=== PATIENT | female | born 1940 | race Caucasian/White ===

== ENCOUNTER → 2020-08-07 11:59 | Outpatient (CLI) | payer MEDICARE, SELFPAY ==
--- NOTE | ~2020-08-07 | XR_ITS ---
EXAMINATION: XR chest 2V DATE: 08/07/2020 12:19 INDICATION: Shortness of breath. TECHNIQUE: Frontal and lateral views of the chest were obtained. COMPARISON: Chest 2 views 11/21/2011, CT abdomen and pelvis 10/06/2015 FINDINGS: There are small right and moderate-sized left pleural effusions. There are airspace opaciti es at left lung base. No pneumothorax. The heart size is obscured. There is a large hiatal hernia. IMPRESSION: 1. Small right and moderate-sized left pleural effusions. 2. Airspace opacities at left lung base, consistent with atelectasis versus pneumonia. 3. Large hiatal hernia. Reviewed, dictated and finalized at location A. OR STAFF ACCOUNTANT IMPRESSION: 1. Small right and moderate-sized left pleural effusions. 2. Airspace opacities at left lung base, consistent with atelectasis versus pne umonia. 3. Large hiatal hernia.
== END ==
PROVIDERS: PCP Family Medicine Adolescent Medicine; Visit Provider Physician Assistant
DX: R06.02 Shortness of breath (principal); K44.9 Diaphragmatic hernia without obstruction or gangrene; R92.8 Other abnormal and inconclusive findings on diagnostic imaging of breast; J90 Pleural effusion, not elsewhere classified
CPT/HCPCS: 71046

== ENCOUNTER 2020-08-16 13:49 | Outpatient (CLI) | payer MEDICARE, SELFPAY ==
--- NOTE | ~2020-08-16 | CT_ITS ---
EXAMINATION: CTA chest PE protocol EXAM DATE: 08/16/2020 15:09 INDICATION: Shortness of breath. TECHNIQUE: Spiral CTA of the chest (pulmonary arteries) was performed with 100 cc Omnipaque 350 intr avenous contrast injection. Images were acquired during the pulmonary arterial phase. Coronal maxi mum intensity projection 3D-reconstructions were created by the technologist on dedicated workstation . Axial, coronal and sagittal reformatted images were reviewed. The dose-length product (DLP) for t his examination was 628.98 mGy-cm. The exposure was tailored according to patient size (auto mA exp osure control), and iterative reconstruction (ASIR) was used as additional dose reduction technique. There is no prior study for comparison. FINDINGS: There are no pulmonary emboli in the 1st through 3rd order (central and interlobar) pulmon bhanu arteries. Some loss of attenuation in the basilar segmental pulmonary arteries without evidence of respiratory motion in these areas. No Intraluminal filling defects suspected. No thoracic aortic dissection. There is moderate left and small to moderate right pleural effusion with adjacent segmental atelectas is. There is cardiomegaly and pulmonary vascular congestion. Some vague bilateral groundglass opaciti es suspicious for mild pulmonary edema. Consider CHF exacerbation. There is moderate sliding gastroes ophageal hiatal hernia. Tracheobronchial tree is patent. There is no mediastinal, hilar or axilla ry lymphadenopathy. There is no pneumothorax. No evidence of coronary arterial calcification. T here is left adrenal lesion most likely adenoma measuring 1.4 cm. Small sclerotic focus left 3rd rib anteriorly probably bone island. Mild to moderate thoracic spondylosis. IMPRESSION: 1. Limited segmental evaluation, but no pulmonary emboli are suspected. 2. Findings consistent with CHF exacerbation. 3. Moderate left, small to moderate pleural effusions. Adjacent segmental atelectasis. 4. Moderate-sized hiatal hernia. Reviewed, dictated and finalized at location B. INCT CAPTAIN IMPRESSION: 1. Limited segmental evaluation, but no pulmonary emboli are suspected. 2. Findings consistent with CHF exacerbation. 3. Moderate left, small to moderate pleural effusions. Adjacent segmental atel ectasis. 4. Moderate-sized hiatal hernia.
[2020-08-16 14:59] LABS: Estimated Glomerular Filt Rate > 60
== END 2020-08-16 13:50 | disposition home or self-care (01) ==
PROVIDERS: PCP Family Medicine Adolescent Medicine; Referring Provider Internal Medicine Cardiovascular Disease; Visit Provider Physician Assistant
DX: R06.02 Shortness of breath (principal); R06.00 Dyspnea, unspecified
CPT/HCPCS: 71275; Q9967

== ENCOUNTER → 2020-08-28 01:38 | Outpatient (CLI) | payer MEDICARE, SELFPAY ==
[2020-08-28 19:35] LABS: SARS-CoV-2 RNA PCR Negative
== END ==
PROVIDERS: PCP Family Medicine Adolescent Medicine; Visit Provider Internal Medicine Cardiovascular Disease
DX: Z01.812 Encounter for preprocedural laboratory examination (principal); Z20.822 Contact with and (suspected) exposure to COVID-19
CPT/HCPCS: C9803; U0003; U0005

== ENCOUNTER → 2020-09-11 02:20 | Outpatient (CLI) | payer MEDICARE, SELFPAY ==
[2020-09-11 18:21] LABS: SARS-CoV-2 RNA PCR Negative
== END ==
PROVIDERS: PCP Family Medicine Adolescent Medicine; Visit Provider Internal Medicine Cardiovascular Disease
DX: Z01.812 Encounter for preprocedural laboratory examination (principal); Z20.822 Contact with and (suspected) exposure to COVID-19
CPT/HCPCS: C9803; U0003; U0005

== ENCOUNTER 2020-09-14 00:43 | Day surgery (SDC) | payer MEDICARE, SELFPAY ==
--- NOTE | 2020-09-13 13:54 | PC.NURSE ---
Attempted to reach pt. to discuss health history and upcoming procedure on 09/14/2020. History received from patient's , Agusto, who states that pt. has been uncooperative lately. Patient's informed that she is to arrive to [facility] at 0900 on 09/14/20 and to remain NPO after midnight. Patient's verbalizes understanding.
[2020-09-14] VITALS (9 sets, daily range): BP systolic 124–157; BP diastolic 70–90; PULSE 75–81; RESP 12–19; TEMP 35.8–36.6; O2SAT 94–99; BMI 32.5
[2020-09-14 10:01] LABS: Basophils Percent Auto 0.7 % (0.2-1.2); Eosinophils Absolute Auto 0.1 K/mm3 (0-0.3); Hematocrit 48.5 % (37.0-47.0); Immature Granulocyte Absolute 0.01 K/mm3 (0.00-0.031); Immature Granulocyte Percent A 0.2 % (0-0.5); Lymphocytes Absolute Auto 1.98 K/mm3 (0.9-3.2); Lymphocytes Percent Auto 44.7 % (18.3-44.2); Mean Corpuscular Hemoglobin 29.6 pg (26-34); Mean Corpuscular Volume 89.8 fl (80-100); Mean Platelet Volume 10.4 fl (7.4-10.4); Monocytes Absolute Auto 0.6 K/mm3 (0.1-0.6); Monocytes Percent Auto 14.4 % (2.6-8.5); Neutrophils Absolute Auto 1.7 K/mm3 (1.3-6.7); Platelet Count Result 196 k/mm3 (150-375); Red Cell Distribution Width 13.2 % (11.5-14.5); White Blood Count 4.4 K/mm3 (4.5-10.0)
[2020-09-14 10:15] LABS: Anion Gap 4 mmol/L (8-16); Blood Urea Nitrogen 24 mg/dL (7-17); Calcium 9.3 mg/dL (8.4-10.2); Carbon Dioxide 30 mmol/L (22-30); Chloride 105 mmol/L (98-107); Estimated CRCL calculation 61 ml/min; Estimated Glomerular Filt Rate > 60; Glucose 104 mg/dL (65-105); Potassium 4.1 mmol/L (3.4-5.0); Sodium 139 mmol/L (137-145)
[2020-09-14 10:20] LABS: INR 0.9; Prothrombin Time 12.9 Seconds (11.1-14.7)
--- NOTE | 2020-09-14 11:57 | P.PCNCC_ITS ---
Cardiac Cath Procedure Note Date of procedure:: 09/14/20 Performing physician:: Ella Peterson MD date of service 09/14/2020 Indication:: severe mitral valve regurgitation abnormal echo Brief clinical history:: this 80-year-old female who was recently evaluated by myself for a new diagnosis of diastolic heart failure. It was noticed on the echocardiogram that she has severe mitral valve regurgitation and was noticed to have hypokinesis of the inferior wall. We decided to bring her here to define coronary anatomy excludes coronary artery disease as possible etiology for the severe mitral valve regurgitation. Procedure Procedure performed:: 1-Moderate sedation that started at 11:17 a.m.and ended at 11:44 a.m. total duration 27 minutesusing 2mg of Versed and 50mcg fentanyl. The registered nurse was francisco javier thomas. 2-Selective left and right coronary angiogram. 3-Left heart catheterization with measurement of LVEDP and measurement of gradient across aortic valve. 4- LV angiogram. 4-Right common femoral arterial angiogram. 5-Deployment of 6 Wallisian Angio-Seal. Sedation/Medication given:: Moderate sedation. Access site:: Right common femoral artery. Estimated blood loss:: 10cc Procedure note:: After informed consent patient was brought in to label printing machinist with the was draped and prepped in usual manner. Moderate sedation was given and the right groin was infiltrated using 1% lidocaine. Five Wallisian sheath was obtained using micropuncture needle and the modified Seldinger technique. Selective left coronary angiogram was done using JL4 catheter with the tip of the catheter placed in the left main coronary artery. Selective right coronary angiogram was done using JR4 catheter with the tip of the catheter placed to the right co ronary artery. After that 5 Wallisian pigtail catheter was advanced across the aortic valve into the left ventricle with measurement of LVEDP and measurement of gradient across aortic valve. LV angiogram was done as well. Right common femoral arterial angiogram was done. Findings:: 1- left coronary artery is a large artery that divides into large LAD, large circumflex artery. Left main Distally 10%. 2- left anterior descending artery is a large artery that runs and wraps around the apex. Has minimal irregularities. After the large diagonal branch is 10% stenosis. Large diagonal branch that is free of disease. 3- leftcircumflex artery is a large artery And has minimal irregularities. Large OM1 that is free of disease and small OM2 OM3 and 4. 4- right coronary artery is Large artery and dominant and free of disease 5- LVEDP was 20 mm Hg and no gradient across aortic valve. 6- opening arterial pressure was 130/80and closing pressure was 120/80. 7- right femoral artery angiogram shows no significant disease in the right common femoral artery. 8- LV angiogram shows normal LV systolic function but severe mitral valve regurgitation. Conclusion:: minimal coronary irregularities. severe mitral valve regurgitation. Assessment and Plan Additional Plan need mitral valve repair. We will arrange for referral for CT surgery
== END 2020-09-14 15:00 | disposition home or self-care (01) ==
PROVIDERS: PCP Family Medicine Adolescent Medicine; Visit Provider Internal Medicine Cardiovascular Disease
PROC: 4A023N7 Measurement of Cardiac Sampling and Pressure, Left Heart, Percutaneous Approach (ICD-10-PCS; CPT 93452; principal; 2020-09-14 10:30)
DX: I34.0 Nonrheumatic mitral (valve) insufficiency (principal); R93.1 Abnormal findings on diagnostic imaging of heart and coronary circulation; I50.43 Acute on chronic combined systolic (congestive) and diastolic (congestive) heart failure; I25.10 Atherosclerotic heart disease of native coronary artery without angina pectoris; E78.5 Hyperlipidemia, unspecified; R06.02 Shortness of breath; R60.0 Localized edema
CPT/HCPCS: 36415; 80048; 85025; 85610; 93458; C1760; C1887; C1894; C9803; G0269; J1644; J2250; J3010; J7040; U0003; U0005

== ENCOUNTER → 2020-10-02 01:05 | Outpatient (CLI) | payer MEDICARE, SELFPAY ==
[2020-10-02 20:23] LABS: SARS-CoV-2 RNA PCR Negative
== END ==
PROVIDERS: PCP Family Medicine Adolescent Medicine; Visit Provider Internal Medicine Cardiovascular Disease
DX: Z01.812 Encounter for preprocedural laboratory examination (principal); Z20.822 Contact with and (suspected) exposure to COVID-19
CPT/HCPCS: C9803; U0003; U0005

== ENCOUNTER 2020-10-05 01:20 | Day surgery (SDC) | payer MEDICARE, SELFPAY ==
[2020-10-05] VITALS (12 sets, daily range): BP systolic 110–162; BP diastolic 74–111; PULSE 76–95; RESP 14–20; TEMP 35.8–36.1; O2SAT 95–100; BMI 32.7
--- NOTE | 2020-10-05 | ECHO_ITS ---
Patient Info Name: Vivien Balderrama Age: 80 years : 1940 Gender: Female Ht: 68 in Wt: 215 lbs BSA: 2.20 m2 HR: 92 bpm BP: 159 / 88 mmHg Exam Date: 10/05/2020 10:33 AM Exam Location: [facility] Patient Status: Outpatient Admit Date: 10/05/2020 Staff Ordering Physician: Ella Peterson MD End Frazer: Albert Wei, CLEO, RT Attending Provider: Ella Peterson MD Referring Physician: Kristen DILLON; Exam Type: CA echo transesophageal Study Info Indications I34.0 - Nonrheumatic mitral (valve) insufficiency Complete two-dimensional, color flow and Doppler transesophageal study is performed. Summary 1. Left ventricular chamber dimension is normal. 2. Estimated ejection fraction 45-50%. 3. Left atrial chamber dimension is moderately enlarged. 4. There is mild aortic valve sclerosis. 5. The aortic valve is trileaflet. 6. There is severe mitral valve regurgitation. 7. The mitral valve has thickened leaflets. 8. There is mild tricuspid valve regurgitation. 9. No pulmonary hypertension, estimated pulmonary arterial systolic pressure is 21 mmHg. Left Ventricle Left ventricular chamber dimension is normal. There is no increased left ventricular wall thickness. Left ventricular septal wall motion is normal. Right Ventricle Right ventricular chamber dimension is normal. Right ventricular systolic function is normal. Left Atria Left atrial chamber dimension is moderately enlarged. Right Atria Right atrial chamber dimension is normal. Atrial Septum Intact interatrial septum visualized by agitated saline imaging. Atrial Appendage Left atrial appendage is normal.. Aortic Valve The aortic valve is trileaflet. There is mild aortic valve sclerosis. There is no aortic valve stenosis. There is no aortic valve regurgitation. Pulmonic Valve The pulmonic valve is normal. There is no pulmonic valve stenosis. There is no pulmonic regurgitation. Mitral Valve The mitral valve has thickened leaflets. There is no mitral valve stenosis. There is severe mitral valve regurgitation. Tricuspid Valve The tricuspid valve leaflets are normal. There is no significant tricuspid valve stenosis. There is mild tricuspid valve regurgitation. No pulmonary hypertension, estimated pulmonary arterial systolic pressure is 21 mmHg. Pericardium/Pleural The pericardium appears normal. Inferior Vena Cava Normal inferior vena cava with <50% collapse upon inspiration consistent with normal right atrial pressure, 5 mmHg. Aorta The aortic root size at the sinus of Valsalva is normal. The prox ascending aorta size is normal. Tricuspid Valve Name Value Normal Estimated PAP/RSVP RA Pressure 5 mmHg <=5 PA Systolic Pressure 21 mmHg <36 Report Signatures
--- NOTE | 2020-10-05 11:20 | WPDMODSED ---
Moderate Sedation Note-Pt Data Patient Data Allergies Allergy/AdvReac Type Severity Reaction Status Date / Time No Known Allergies Allergy Verified 10/05/20 09:15 Home Medications Medication Instructions Recorded Confirmed Type atorvastatin 40 mg PO DAILY 08/30/20 10/05/20 History furosemide 40 mg PO DAILY 08/30/20 10/05/20 History potassium chloride 20 meq PO DAILY 08/30/20 10/05/20 History multivitamin 1 tablet PO DAILY 10/05/20 10/05/20 History omega 4-clt-oev-fish oil [Fish Oil] 1,200 cap PO BID 10/05/20 10/05/20 History psyllium husk [Metamucil] 0.52 g PO DAILY 10/05/20 10/05/20 History Sedation/Anesthesia: No previous sedation/anesthesia problems (including family history). [facility] Family History Family History Father Carcinoma of colon Social History Social History Smoking status: Never smoker Alcohol intake: current Substance use: never Substance use type: does not use Gender identity (if verbalized by the patient): Female Spiritual care concerns: No Mod Sed Physical Exam Physical Exam Pre Procedural Exam: Normal: Appearance, Eyes, Ears, Nose, Neck, Throat, Airway, Lungs, Heart Size, Heart Rate, Heart Rhythm, Neuro Exam, Abdomen, Liver, Kidneys, Spleen, Breasts, Genitalia, Extremities and Skin Hours since solid foods: 8 Hours since liquid intake: 8 Internal Medicine - PN: Obj Da Vital Signs Vital Signs: Vital Signs - 24 hr 10/05/20 09:25 10/05/20 10:45 10/05/20 10:50 Temperature 35.8 C L Pulse Rate 77 92 92 Respiratory Rate 15 16 15 Blood Pressure 138/92 H 156/95 H 137/82 Pulse Oximetry 96 100 100 10/05/20 10:55 10/05/20 11:00 10/05/20 11:05 Temperature Pulse Rate 95 95 92 Respiratory Rate 14 16 16 Blood Pressure 117/82 153/111 H 159/88 H Pulse Oximetry 100 100 100 10/05/20 11:10 Temperature Pulse Rate 92 Respiratory Rate 14 Blood Pressure 162/90 H Pulse Oximetry 100 ASA Classification/Sedation ASA Classification/Sedation ASA Class: I Emergent: No Risks: Risks, benefits and alternatives explained and patient/family accepted plan for sedation. Patient re-evaluated immediately prior to sedation.
--- NOTE | 2020-10-05 11:20 | PM.IMHP ---
H&P: HPI History of Present Illness Date/Time: 10/05/20 11:20 Chief Complaint: Patient is here for transesophageal echocardiogram Narrative: This 80-year-old female with past medical history of hyperlipidemia who had progressive worsening shortness of breath on exertion. Associated with bilateral lower limb edema. Denied chest pain, dizziness or syncope. She underwent cardiac catheterization that did not show significant CAD. Her echocardiogram suggestive of severe mitral valve regurgitation. She is here for transesophageal echocardiogram in anticipation for mitral valve surgery. Review of Systems Review of Systems: All systems reviewed & are unremarkable except as noted in HPI and below Constitutional: Constitutional: Denies chills, Denies fatigue, Denies fever(s), Denies headache(s) and Denies snoring Eyes: Eyes: Denies eye discharge and Denies loss of vision ENT: Denies dizziness, Denies headache(s), Denies nasal discharge and Denies sore throat Cardiovascular: Cardiovascular: Reports as per HPI, Denies chest pain, Denies syncope, Denies rapid heart rate, Reports leg edema, Denies dyspnea, Reports dyspnea on exertion, Denies orthopnea and Denies paroxysmal nocturnal dyspnea Respiratory: Respiratory: Denies chest congestion, Denies cough, Reports dyspnea, Denies snoring and Denies wheezing Gastrointestinal: Gastrointestinal: Denies abdominal pain, Denies diarrhea, Denies nausea and Denies vomiting Genitourinary: Genitourinary: Denies hematuria, Denies urinary frequency, Denies dysuria and Denies flank pain Musculoskeletal: Musculoskeletal: Denies myalgias, Denies arthralgias and Denies joint swelling Neurologic: Denies Abnormal speech present, Denies dizziness, Denies syncope, Denies headache(s), Denies focal weakness and Denies loss of vision Psychiatric: Psychiatric: Denies anxiety and Denies depression Endocrine: Endocrine: Denies cold intolerance, Denies fatigue and Denies heat intolerance Hematologic/Lymphatic: Hematologic/Lymphatic: Denies easy bleeding and Denies easy bruising Allergic/Immunologic: Allergic/Immunologic: Denies urticaria and Denies wheezing PMF Family History Family History Father Carcinoma of colon Social History Social History Smoking status: Never smoker Alcohol intake: current Substance use: never Substance use type: does not use Gender identity (if verbalized by the patient): Female Spiritual care concerns: No Meds Home Medications and Allergies Home Medications Medication Instructions Recorded Confirmed Type atorvastatin 40 mg PO DAILY 08/30/20 10/05/20 History furosemide 40 mg PO DAILY 08/30/20 10/05/20 History potassium chloride 20 meq PO DAILY 08/30/20 10/05/20 History multivitamin 1 tablet PO DAILY 10/05/20 10/05/20 History omega 7-iqw-vjh-fish oil [Fish Oil] 1,200 cap PO BID 10/05/20 10/05/20 History psyllium husk [Metamucil] 0.52 g PO DAILY 10/05/20 10/05/20 History Allergies Allergy/AdvReac Type Severity Reaction Status Date / Time No Known Allergies Allergy Verified 10/05/20 09:15 Vital Signs Vital Signs - 24 hr 10/05/20 09:25 10/05/20 10:45 10/05/20 10:50 Temperature 35.8 C L Pulse Rate 77 92 92 Respiratory Rate 15 16 15 Blood Pressure 138/92 H 156/95 H 137/82 Pulse Oximetry 96 100 100 10/05/20 10:55 10/05/20 11:00 10/05/20 11:05 Temperature Pulse Rate 95 95 92 Respiratory Rate 14 16 16 Blood Pressure 117/82 153/111 H 159/88 H Pulse Oximetry 100 100 100 10/05/20 11:10 10/05/20 11:15 Temperature Pulse Rate 92 89 Respiratory Rate 14 14 Blood Pressure 162/90 H 154/90 H Pulse Oximetry 100 98 Exam Const: General: cooperative, healthy appearing, comfortable, no acute distress and well developed Nutritional Appearance: well nourished Orientation/consciousness: patient oriented x3 HENMT: Head: normal to insp
--- NOTE | 2020-10-05 12:38 | SUR.PHASEII ---
Pt. given discharge education on post-sedation care and follow-up information. Pt. verbalizes understanding of discharge education. No change in pt. condition upon departure. Pt. escorted to vehicle via wheelchair.
== END 2020-10-05 12:40 | disposition home or self-care (01) ==
PROVIDERS: PCP Family Medicine Adolescent Medicine; Visit Provider Internal Medicine Cardiovascular Disease
PROC: (CPT 93312; principal; 2020-10-05 10:30)
DX: Z01.810 Encounter for preprocedural cardiovascular examination (principal); I34.0 Nonrheumatic mitral (valve) insufficiency; I36.1 Nonrheumatic tricuspid (valve) insufficiency; R06.02 Shortness of breath; E78.5 Hyperlipidemia, unspecified; R60.0 Localized edema
CPT/HCPCS: 93312; 93320; 93325; C9803; J2250; J3010; J7040; U0003; U0005

== ENCOUNTER 2021-01-05 14:14 | Inpatient (IN) | payer MEDICARE, SELFPAY ==
[2021-01-05] VITALS (35 sets, daily range): BP systolic 102–139; BP diastolic 58–99; PULSE 80–83; RESP 14–28; TEMP 36.2–36.8; O2SAT 70–100; BMI 47.4
--- NOTE | ~2021-01-05 | XR_ITS ---
EXAMINATION: XR chest 1V portable DATE: 01/10/2021 05:58 INDICATION: Shortness of breath TECHNIQUE: frontal view of the chest was obtained. COMPARISON: Chest radiograph dated 01/07/2021 FINDINGS: Opacities in the left mid and lower lung zone and throughout the right lung consistent with moderate to large right and moderate left pleural effusions with associated atelectasis and/or pneumonia. This has increased on the right. The cardiac silhouette is obscured. Median sternotomy wires and mediasti nal surgical clips are seen, likely from prior coronary artery bypass grafting. Dual lead pacemaker s een with leads projecting over the expected locations of the right atrium and right ventricle. IMPRESSION: 1. Increasing moderate to large right and unchanged moderate size left pleural effusions with associa rashard atelectasis and/or pneumonia. Reviewed, dictated and finalized at location A. IMPRESSION: 1. Increasing moderate to large right and unchanged moderate size left pleural effusions with associated atelectasis and/or pneumonia.
--- NOTE | ~2021-01-05 | CT_ITS ---
EXAMINATION: CT brain wo con INDICATION: Confusion COMPARISON: MRI, 08/13/2018 TECHNIQUE: Standard unenhanced head CT. The dose-length product (DLP) was 681.00 mGy-cm. The mA was a djusted according to patient size. Iterative reconstruction technique was employed. FINDINGS: There is no acute intraparenchymal hemorrhage. No evidence of mass lesion. No evidence of a cute infarction. There are old lacunar infarcts of the basal ganglia. There is mild periventricular a nd subcortical hypodensity probably related to small vessel ischemic disease. There is mild prominenc e of the sulci and ventricles related to cerebral atrophy. Intracranial calcified cerebral atheroscle rosis is noted. There are no extra-axial collections. There is no mass effect or midline shift. The o rbits and soft tissues are unremarkable. There is mild mucosal thickening of the paranasal sinuses. IMPRESSION: 1. Old lacunar infarcts without acute intracranial abnormality. 2. Age related findings. Reviewed, dictated and finalized at location B.
--- NOTE | ~2021-01-05 | US_ITS ---
EXAMINATION: US renal BI DATE: 01/06/2021 20:08 INDICATION: Acute kidney injury. TECHNIQUE: Multiple ultrasound grayscale images of the kidneys were obtained. COMPARISON: CT abdomen and pelvis 10/06/2015 FINDINGS: The right kidney measures 8.5 x 4.0 x 3.5 cm. The left kidney measures 9.6 x 3.8 x 4.7 cm. The kidney s demonstrate normal parenchymal echogenicity. There is no hydronephrosis. The bladder is decompresse d. IMPRESSION: 1. Mild atrophy of right kidney. No hydronephrosis. Reviewed, dictated and finalized at location A.
--- NOTE | ~2021-01-05 | XR_ITS ---
XR chest 1V portable 01/07/2021 06:14 Indication: Fluid overload. Shortness of breath. Procedure: AP portable chest Comparison: 08/07/2020 Findings: Status post median sternotomy for CABG. Cardiomegaly. Pacemaker leads are in expected posit ion. Bilateral pleural effusions, right greater than left. There is been progression of bilateral air space disease, right greater than left. No pneumothorax. Impression: 1: Progression of bilateral airspace disease which may represent edema and/or pneumonia. 2: Bilateral pleural effusions, right greater than left. Reviewed, dictated and finalized at location A. Impression: 1: Progression of bilateral airspace disease which may represent edema and/or p neumonia. 2: Bilateral pleural effusions, right greater than left.
--- NOTE | ~2021-01-05 | XR_ITS ---
EXAMINATION: XR chest 1V portable DATE: 01/11/2021 11:18 INDICATION: Transient alteration of awareness. TECHNIQUE: frontal view of the chest was obtained. COMPARISON: Chest radiograph dated 01/10/2021 FINDINGS: Slight decrease in opacities in the right mid to lower and left lower lung zones consistent with decr ease in moderate right and small left pleural effusions with associated atelectasis and/or pneumonia. No pneumothorax. The cardiac silhouette appears enlarged but partially obscured. Median sternotomy w ires and ring of sutures project over the heart in location suggesting prior mitral valve repair. Lata l lead pacemaker seen with leads projecting over the expected locations of the right atrium and right ventricle. IMPRESSION: 1. Decreasing moderate right and small left pleural effusions with associated atelectasis and/or pneu monia. 2. Cardiomegaly. Reviewed, dictated and finalized at location A. IMPRESSION: 1. Decreasing moderate right and small left pleural effusions with associated a telectasis and/or pneumonia. 2. Cardiomegaly.
--- NOTE | ~2021-01-05 | XR_ITS ---
XR chest 1V portable 01/05/2021 14:29 Indication: Decreased oxygen saturations. Bilateral leg swelling. Procedure: AP portable chest Comparison: 08/07/2020 Findings: Status post median sternotomy for CABG. Cardiomegaly with bilateral airspace disease. Bilat eral pleural effusions. No pneumothorax. Impression: 1: Bilateral airspace disease may represent edema or pneumonia. 2: Small pleural effusions. 3: Cardiomegaly. Reviewed, dictated and finalized at location B. Impression: 1: Bilateral airspace disease may represent edema or pneumonia. 2: Small pleural effusions. 3: Cardiomegaly.
--- NOTE | 2021-01-05 14:18 | ECG_ITS ---
Measurements Intervals [place] Rate: 80 P: 175 ND: 231 QRS: 159 QRSD: 185 T: -11 QT: 467 QTc: 539 Interpretive Statements ELECTRONIC ATRIAL PACEMAKER ELECTRONIC VENTRICULAR PACEMAKER NO FURTHER INTERPRETATION IS POSSIBLE ATYPICAL ECG Electronically Signed On 01-05-2021 14:55:01 CDT by Zak Guerra D.O.
--- NOTE | 2021-01-05 14:18 | ED.SOB ---
HPI - SOB/Dyspnea General Chief Complaint: Shortness of Breath/Dyspnea Stated Complaint: LOW O2 SATS Source: RN notes reviewed History of Present Illness HPI Narrative: Patient presents to emergency department from home via EMS for shortness of breath. When EMS arrived patient had oxygen saturation of 75% was placed on 4 L nasal cannula with improvement of oxygen patient has been noting that she has been having swelling in the bilateral lower extremities and wearing compression stockings denies any fevers or chills chest pain abdominal pain nausea vomiting or any other symptoms patient is on Lasix which she states she has been taking. States she has been feeling weak Related Data Home Medications Medication Instructions Recorded Confirmed atorvastatin 20 mg PO DAILY 08/30/20 01/05/21 furosemide 40 mg PO BID 08/30/20 01/05/21 psyllium husk [Metamucil] 1.56 g PO DAILY 10/05/20 01/05/21 aspirin [Adult Aspirin EC Low 81 mg PO DAILY 01/05/21 01/05/21 Strength] docusate sodium [Colace] 50 mg PO BID 01/05/21 01/05/21 metolazone 2.5 mg PO BID 01/05/21 01/05/21 metoprolol tartrate 25 mg PO BID 01/05/21 01/05/21 quetiapine 50 mg PO HS 01/05/21 01/05/21 Allergies Allergy/AdvReac Type Severity Reaction Status Date / Time No Known Allergies Allergy Verified 10/05/20 09:15 Review of Systems Review of Systems: Narrative: Gen.: Denies fevers or chills Eyes: Denies eye pain or visual change ENT: Denies congestion Respiratory: See HPI CV: Denies chest pain or palpitations GI: Denies abdominal pain nausea, emesis or diarrhea Musculoskeletal: Denies back pain or muscle pain Neuro: Reports weakness Skin: Denies rash Except as documented, all other systems reviewed and negative [facility] Past Medical History Medical History Mitral valve regurgitation Family History Family History Father Carcinoma of colon Social History Social History Smoking status: Never smoker Alcohol intake: never Substance use: never Substance use type: does not use Gender identity (if verbalized by the patient): Female Spiritual care concerns: No Exam Narrative: Exam Narrative: APPEARANCE: No acute distress, nontoxic, resting in bed EYES: EOMI HEENT: Normocephalic, atraumatic, OMM RESPIRATORY: No respiratory distress crackles in the bilateral lung bases no wheezing CARDIOVASCULAR: Regular rate and rhythm without murmurs rubs or gallops. ABDOMINAL: Soft, nontender, nondistended, no rebound or guarding MUSCULOSKELETAl: Moves all extremities. No clubbing, cyanosis 4+ edema in the bilateral lower extremities bilateral dorsalis pedis pulse present with Doppler ultrasound NEURO: Awake and alert. Following commands, speech normal, no focal deficits SKIN:: Warm, dry. No rashes lesions or abrasions PSYCHIATRIC: Normal affect/mood, Course Course Emergency Course: Patient was noted to be more lethargic at that time ABG was obtained that showed patient to be hypercapnic and started on BiPAP Called and discussed with Dr. greene presentation and work-up discussed the patient's new renal failure as well as heart failure at this time he request patient receive acetazolamide 250 mg IV x1 Called discussed with Dr. Lee for cardiology presentation work-up agrees with consult Discussed with LITTLE Valentine for presentation work-up agrees with admission at this time Patient had repeat blood gas showing worsening hypercapnia BiPAP settings were changed a repeat gas was obtained an hour later which did show improvement I called and updated both LITTLE Valentine and Dr. Cabrera on improvement they are controlled the patient going to I am you at this time Vital Signs Vital signs: Vital Signs Temperature 98.3 F 01/05/21 14:15 Pulse Rate 80 01/05/21 14:15 Respiratory Rate 28 H 01/05/21 14:
--- NOTE | 2021-01-05 16:07 | PC.NURSE ---
labs drawn and sent by this rn. pt resting quietly on stretcher. pulse ox 98% 4 l 02 via ia.
[2021-01-05 16:10] LABS: Basophils Percent Auto 0.2 % (0.2-1.2); Eosinophils Percent Auto 0.4 % (0-4.4); Hematocrit 30.6 % (37.0-47.0); Hemoglobin 8.8 g/dL (12.0-15.0); Immature Granulocyte Absolute 0.13 K/mm3 (0.00-0.031); Immature Granulocyte Percent A 1.2 % (0-0.5); Lymphocytes Absolute Auto 1.77 K/mm3 (0.9-3.2); Lymphocytes Percent Auto 16.9 % (18.3-44.2); Mean Corpuscular HGB Conc 28.8 g/dl (32-36); Mean Corpuscular Hemoglobin 22.2 pg (26-34); Mean Corpuscular Volume 77.1 fl (80-100); Monocytes Absolute Auto 1.2 K/mm3 (0.1-0.6); Monocytes Percent Auto 11.6 % (2.6-8.5); Neutrophils Absolute Auto 7.3 K/mm3 (1.3-6.7); Neutrophils Percent Auto 69.7 % (45.5-73.1); Nucleated Red Blood Cells Absolute Auto 0.1 K/mm3 (0.0-0.012); Nucleated Red Blood Cells Perc 0.5 % (0.0-0.2); Platelet Count Result 318 k/mm3 (150-375); Red Blood Count 3.97 M/mm3 (4.2-5.4); Red Cell Distribution Width 19.5 % (11.5-14.5); White Blood Count 10.5 K/mm3 (4.5-10.0)
[2021-01-05 16:22] LABS: INR 1.3; Prothrombin Time 16.3 Seconds (11.1-14.7)
[2021-01-05 16:23] LABS: Partial Thromboplastin Time 27.7 SECONDS (22.3-36.8)
[2021-01-05 16:32] LABS: Blood Urea Nitrogen 101 mg/dL (7-17); Calcium 9.1 mg/dL (8.4-10.2); Carbon Dioxide > 40 mmol/L (22-30); Chloride 79 mmol/L (98-107); Estimated CRCL calculation 18 ml/min; Estimated Glomerular Filt Rate 17; Glucose 117 mg/dL (65-105); Potassium 3.2 mmol/L (3.4-5.0); Sodium 130 mmol/L (137-145)
[2021-01-05 16:40] LABS: Hypochromasia 1+ (NORMAL); Platelet Estimate Adequate (Adequate)
[2021-01-05 16:41] LABS: Anisocytosis 3+ (NORMAL)
[2021-01-05 17:10] LABS: NT Pro B Type Natriuretic Pept 17900 pg/mL (5-100)
[2021-01-05 17:31] LABS: Alveolar/Arterial O2 Gradient 70.3 mmHg; Base Excess ABG 11.8 mEq/l (+/-2.0); Fractional Inspired Oxygen 36 %; HCO3 ABG 39.1 mEq/l (22.0-26.0); Oxygen Content ABG 13.8 %vol (16.0-22.0); Oxygen Saturation ABG 97.6 % (95.0-100.0); Oxyhemoglobin 95.9 % THb (90.0-100.0); PO2 ABG 106.7 mmHg (80.0-100.0); PO2 FiO2 Ratio Arterial Blood 2.96 %; Total Hemoglobin 10.1 g/dL (12.0-18.0); pH ABG 7.373 (7.350-7.450)
[2021-01-05 17:32] LABS: Device NASAL CANNULA; Modified Allen's Test Pass; PCO2 ABG 68.7 mmHg (35.0-45.0); Site Drawn RIGHT RADIAL
[2021-01-05 18:39] LABS: Alveolar/Arterial O2 Gradient 59.6 mmHg; Base Excess ABG 16.8 mEq/l (+/-2.0); Fractional Inspired Oxygen 35 %; HCO3 ABG 44.7 mEq/l (22.0-26.0); Oxygen Content ABG 13.3 %vol (16.0-22.0); Oxygen Saturation ABG 97.2 % (95.0-100.0); Oxyhemoglobin 95.2 % THb (90.0-100.0); PO2 ABG 100.6 mmHg (80.0-100.0); PO2 FiO2 Ratio Arterial Blood 2.87 %; Total Hemoglobin 9.8 g/dL (12.0-18.0); pH ABG 7.382 (7.350-7.450)
[2021-01-05 18:42] LABS: Device NON-INVASIVE VENT; Modified Allen's Test Pass; Non-Invasive Expiratory Pressure 8 CMH2O; Non-Invasive Inspiratory Pressure 14 CMH2O; Non-Invasive Vent Rate 4 /MIN; PCO2 ABG 76.9 mmHg (35.0-45.0); Site Drawn RIGHT RADIAL
[2021-01-05] MEDS: acetaZOLAMIDE SODIUM FOR INJ 500 MG VIAL 250 MG IV PUSH (18:45)
[2021-01-05 19:56] LABS: Base Excess ABG 15.9 mEq/l (+/-2.0); Fractional Inspired Oxygen 35 %; Oxygen Content ABG 13.3 %vol (16.0-22.0); Oxygen Saturation ABG 97.8 % (95.0-100.0); PO2 ABG 109.6 mmHg (80.0-100.0); PO2 FiO2 Ratio Arterial Blood 3.13 %; Total Hemoglobin 9.7 g/dL (12.0-18.0); pH ABG 7.409 (7.350-7.450)
[2021-01-05 19:58] LABS: Device NON-INVASIVE VENT; Modified Allen's Test Unable to perform; PCO2 ABG 69.6 mmHg (35.0-45.0); Site Drawn RIGHT RADIAL
[2021-01-05 19:59] LABS: Non-Invasive Expiratory Pressure 6 CMH2O; Non-Invasive Inspiratory Pressure 20 CMH2O; Non-Invasive Vent Rate 20 /MIN
[2021-01-05 21:21] LABS: Add Urine Microscopic? NO; Appearance Urine Clear (Clear); Bilirubin Urine Negative (Negative); Blood Urine Negative (Negative); Color Urine Yellow (Yellow); Glucose Urine UA Negative (Negative); Ketones Urine Negative (Negative); Leukocyte Esterase Ur Negative LEU/UL (Negative); Nitrate Urine Negative (Negative); Protein Urine Negative (Negative); Urobilinogen Urine Negative mg/dL (<2.0)
--- NOTE | 2021-01-05 21:37 | PC.NURSE ---
This patient, Vivien Balderrama, was admitted to IMU Room 231-01. Patient/family oriented to hospital policies and general routines including ID bracelet, bed and alarms, visiting hours, pain management, procedures, bathroom and other care routines, personal items, smoking policy, room service/diet, and visiting hours. Information on how to activate the Rapid Response Team has been discussed. Patient/Family are encouraged to report perceived risks to care and to ask questions if they do not understand what they are told or what they should do.
[2021-01-05 21:58] LABS: Troponin I 0.994 ng/mL (0.000-0.034)
[2021-01-06] VITALS (21 sets, daily range): BP systolic 101–130; BP diastolic 44–62; PULSE 79–81; RESP 17–23; TEMP 36.1–36.6; O2SAT 93–100
--- NOTE | 2021-01-06 | ECHO_ITS ---
Patient Info Name: Vivien Balderrama Age: 80 years : 1940 Gender: Female Ht: 60 in Wt: 242 lbs BSA: 2.23 m2 HR: 80 bpm BP: 130 / 60 mmHg Heart Rhythm: Paced Technical Quality: Poor Exam Date: 01/06/2021 9:58 AM Exam Location: [facility] Card Pulmonary Patient Status: Inpatient Admit Date: 01/05/2021 Staff Ordering Physician: Kirstin Ang MD [employer]: Tory Quick RDCS Attending Provider: Puneet Hi MD Referring Physician: Ashia TURNER; Exam Type: CA echo doppler color flow Study Info Complete two-dimensional, color flow and Doppler transthoracic echocardiogram is performed with contrast to opacify the left ventricle and to improve the deliniation of the left ventricle endocardial borders. Contrast/Agitated Saline Contrast/Ag. Saline: Definity Amount: 4.00 ml Summary 1. Left ventricular chamber dimension is normal. 2. Left ventricular systolic function is normal, estimated at 55-60%. 3. There is moderate concentric increased left ventricular wall thickness. 4. Left ventricular septal wall motion is abnormal with septal motion related to pacing. 5. The left ventricular diastolic function is grade II diastolic dysfunction. 6. Mitral valve annuloplasty ring consistent with mitral valve repair. Leaflets not well visualized. 7. There is no regurgitation of the mitral valve. 8. There is mild tricuspid valve regurgitation. 9. No pulmonary hypertension, estimated pulmonary arterial systolic pressure is 33 mmHg. 10. There is mild aortic valve stenosis with a peak velocity of 143 cm/s, mean gradient of 4 mmHg, and aortic valve area of 1.8 cm2. 11. There is small pericardial effusion most prominent posterior location. 12. Left pleural effusion. 13. Ascites noted. Left Ventricle Left ventricular chamber dimension is normal. Left ventricular systolic function is normal, estimated at 55-60%. There is moderate concentric increased left ventricular wall thickness. Left ventricular septal wall motion is abnormal with septal motion related to pacing. The left ventricular diastolic function is grade II diastolic dysfunction. Right Ventricle Right ventricular chamber dimension is normal. Right ventricular systolic function is normal. Linear artifact in right ventricle suggestive of catheter(s), pacemaker lead(s), or ICD lead(s). Left Atria Left atrial chamber dimension is mildly enlarged. Right Atria Right atrial chamber dimension is normal. Linear artifact in the right atrium suggestive of catheter(s), pacemaker lead(s), or ICD lead(s). Aortic Valve The aortic valve is trileaflet. There is mild aortic valve stenosis with a peak velocity of 143 cm/s, mean gradient of 4 mmHg, and aortic valve area of 1.8 cm2. There is mild aortic valve calcification. Pulmonic Valve The pulmonic valve is not well visualized. There is trace pulmonic regurgitation. Mitral Valve Mitral valve annuloplasty ring consistent with mitral valve repair. Leaflets not well visualized. There is no regurgitation of the mitral valve. Tricuspid Valve The tricuspid valve leaflets are normal. There is mild tricuspid valve regurgitation. No pulmonary hypertension, estimated pulmonary arterial systolic pressure is 33 mmHg. Pericardium/Pleural The pericardium appears normal. There is small pericardial effusion most prominent posterior location. Left pleural effusion. Ascites noted. Inferior Vena Cava Normal inferior vena c
[2021-01-06 01:18] LABS: Troponin I 0.973 ng/mL (0.000-0.034)
--- NOTE | 2021-01-06 04:25 | PM.IMHP ---
H&P: HPI History of Present Illness Date/Time: 01/06/21 04:25 Chief Complaint: Shortness of breath Narrative: This is a 80-year-old female with past medical history significant for severe mitral regurgitation, patient cyst is status post mitral valve repair. She presented to the emergency room through EMS due to shortness of breath upon arrival to emergency room patient was found to have a saturation of 75% and require BiPAP and ABG showed CO2 retention. Patient is unable to give any history as she was obtunded and at the time of my visit she was on BiPAP and still confused. She had elevated brain natriuretic peptide, elevated troponin and chest x-ray with significant for lung infiltrates. Decision was made to admit patient to telemetry unit for further management evaluation and treatment. Review of Systems Review of Systems: ROS unobtainable: Yes unobtainable due to medical condition (Altered mental status confusion and respiratory failure) PMF Past Medical History Medical History Mitral valve regurgitation Family History Family History Father Carcinoma of colon Social History Social History Smoking status: Never smoker Alcohol intake: never Substance use: never Substance use type: does not use Gender identity (if verbalized by the patient): Female Spiritual care concerns: No Meds Home Medications and Allergies Home Medications Medication Instructions Recorded Confirmed Type atorvastatin 20 mg PO DAILY 08/30/20 01/05/21 History furosemide 40 mg PO BID 08/30/20 01/05/21 History psyllium husk [Metamucil] 1.56 g PO DAILY 10/05/20 01/05/21 History aspirin [Adult Aspirin EC Low 81 mg PO DAILY 01/05/21 01/05/21 History Strength] docusate sodium [Colace] 50 mg PO BID 01/05/21 01/05/21 History metolazone 2.5 mg PO BID 01/05/21 01/05/21 History metoprolol tartrate 25 mg PO BID 01/05/21 01/05/21 History quetiapine 50 mg PO HS 01/05/21 01/05/21 History Allergies Allergy/AdvReac Type Severity Reaction Status Date / Time No Known Allergies Allergy Verified 10/05/20 09:15 Vital Signs Vital Signs - 24 hr 01/05/21 14:15 01/05/21 14:22 01/05/21 14:24 Temperature 98.3 F Pulse Rate 80 80 80 Respiratory Rate 28 H 17 Blood Pressure 121/69 Pulse Oximetry 70 L 100 01/05/21 14:53 01/05/21 15:00 01/05/21 15:15 Temperature Pulse Rate Respiratory Rate Blood Pressure Pulse Oximetry 100 100 100 01/05/21 15:31 01/05/21 15:32 01/05/21 15:59 Temperature Pulse Rate 80 Respiratory Rate 19 Blood Pressure 102/82 Pulse Oximetry 100 100 01/05/21 16:04 01/05/21 16:21 01/05/21 16:30 Temperature Pulse Rate 81 80 Respiratory Rate 20 22 H Blood Pressure Pulse Oximetry 97 01/05/21 17:24 01/05/21 17:30 01/05/21 17:45 Temperature Pulse Rate 80 80 Respiratory Rate 14 17 Blood Pressure Pulse Oximetry 83 L 100 91 01/05/21 17:47 01/05/21 18:00 01/05/21 18:15 Temperature Pulse Rate Respiratory Rate Blood Pressure 121/78 Pulse Oximetry 98 100 100 01/05/21 18:17 01/05/21 18:34 01/05/21 18:48 Temperature Pulse Rate Respiratory Rate Blood Pressure 131/62 128/65 Pulse Oximetry 100 01/05/21 18:51 01/05/21 18:56 01/05/21 19:05 Temperature Pulse Rate 80 80 83 Respiratory Rate 20 21 H Blood Pressure Pulse Oximetry 100 01/05/21 19:15 01/05/21 19:18 01/05/21 19:30 Temperature Pulse Rate 82 80 80 Respiratory Rate 18 18 16 Blood Pressure 113/99 H Pulse Oximetry 100 100 100 01/05/21 19:31 01/05/21 20:01 01/05/21 20:30 Temperature Pulse Rate 80 80 Respiratory Rate 20 20 Blood Pressure 127/84 Pulse Oximetry 100 100 96 01/05/21 20:40 01/05/21 20:45 01/05/21 20:47 Temperature 97.2 F L Pulse Rate 81 81 80 Respi
[2021-01-06 05:48] LABS: Basophils Percent Auto 0.4 % (0.2-1.2); Eosinophils Absolute Auto 0.2 K/mm3 (0-0.3); Eosinophils Percent Auto 2.8 % (0-4.4); Hematocrit 30.1 % (37.0-47.0); Hemoglobin 8.4 g/dL (12.0-15.0); Immature Granulocyte Absolute 0.03 K/mm3 (0.00-0.031); Immature Granulocyte Percent A 0.4 % (0-0.5); Lymphocytes Absolute Auto 1.34 K/mm3 (0.9-3.2); Mean Corpuscular HGB Conc 27.9 g/dl (32-36); Mean Corpuscular Hemoglobin 21.5 pg (26-34); Mean Corpuscular Volume 77.2 fl (80-100); Monocytes Absolute Auto 1.1 K/mm3 (0.1-0.6); Monocytes Percent Auto 14.9 % (2.6-8.5); Neutrophils Absolute Auto 4.4 K/mm3 (1.3-6.7); Neutrophils Percent Auto 62.5 % (45.5-73.1); Nucleated Red Blood Cells Perc 0.3 % (0.0-0.2); Platelet Count Result 268 k/mm3 (150-375); Red Cell Distribution Width 19.6 % (11.5-14.5); White Blood Count 7.1 K/mm3 (4.5-10.0)
[2021-01-06 06:09] LABS: Blood Urea Nitrogen 92 mg/dL (7-17); Calcium 9.2 mg/dL (8.4-10.2); Carbon Dioxide > 40 mmol/L (22-30); Chloride 81 mmol/L (98-107); Estimated CRCL calculation 19 ml/min; Estimated Glomerular Filt Rate 19; Glucose 87 mg/dL (65-105); Potassium 2.6 mmol/L (3.4-5.0); Sodium 131 mmol/L (137-145)
[2021-01-06 06:20] LABS: Hypochromasia 3+ (NORMAL); Ovalocytes 2+ (NORMAL); Platelet Estimate Adequate (Adequate); Stomatocytes 2+ (NORMAL)
[2021-01-06] MEDS: KCL 20 MEQ/SW 100 ML 100 ML 50 MEQ IVPB ×2 (06:52→08:48)
[2021-01-06 07:15] LABS: Base Excess ABG 15.9 mEq/l (+/-2.0); Fractional Inspired Oxygen 30 %; HCO3 ABG 42.6 mEq/l (22.0-26.0); Oxygen Content ABG 12.9 %vol (16.0-22.0); Oxygen Saturation ABG 97.4 % (95.0-100.0); Oxyhemoglobin 95.7 % THb (90.0-100.0); PO2 ABG 98.5 mmHg (80.0-100.0); PO2 FiO2 Ratio Arterial Blood 3.28 %; Total Hemoglobin 9.5 g/dL (12.0-18.0); pH ABG 7.428 (7.350-7.450)
[2021-01-06 07:16] LABS: Device NON-INVASIVE VENT; Modified Allen's Test Pass; Non-Invasive Expiratory Pressure 6 CMH2O; Non-Invasive Inspiratory Pressure 20 CMH2O; Non-Invasive Vent Rate 20 /MIN; PCO2 ABG 65.9 mmHg (35.0-45.0); Site Drawn LEFT RADIAL
[2021-01-06] MEDS: ENOXAPARIN 30 MG/0.3 ML SYRINGE SUB-Q (08:49)
[2021-01-06 11:34] LABS: Blood Urea Nitrogen 90 mg/dL (7-17); Calcium 9.3 mg/dL (8.4-10.2); Carbon Dioxide > 40 mmol/L (22-30); Chloride 82 mmol/L (98-107); Estimated CRCL calculation 20 ml/min; Estimated Glomerular Filt Rate 20; Glucose 98 mg/dL (65-105); Potassium 3.8 mmol/L (3.4-5.0); Sodium 131 mmol/L (137-145)
--- NOTE | 2021-01-06 14:19 | PM.IMPN ---
Progress Note: A&P Assessment and Plan (1) Acute on chronic respiratory failure with hypoxia and hypercapnia: Code(s): J96.21 - Acute and chronic respiratory failure with hypoxia; J96.22 - Acute and chronic respiratory failure with hypercapnia Status: Acute Assessment and Plan: Admit to telemetry unit Continues BiPAP ABG reviewed Chest x-ray reviewed Likely secondary to fluid overload Diuresing Gillis in Daily weight Daily intake and output Cardiology consult 01/06/21 14:19 Chief Complaint: Shortness of breath Narrative: This is a 80-year-old female with past medical history significant for severe mitral regurgitation, patient cyst is status post mitral valve repair. She presented to the emergency room through EMS due to shortness of breath upon arrival to emergency room patient was found to have a saturation of 75% and require BiPAP and ABG showed CO2 retention. Patient is unable to give any history as she was obtunded and at the time of my visit she was on BiPAP and still confused. She had elevated brain natriuretic peptide, elevated troponin and chest x-ray with significant for lung infiltrates. Decision was made to admit patient to telemetry unit for further management evaluation and treatment. 01/06 patient is 80-year-old female presented emergency department with hypoxia and high hypercapnic respiratory failure currently on BiPAP unable to provide any review of symptom. patient is seen pulmonology suspect cardiac issues patient seen by cardiology and further recommendation to follow. (2) CHF (congestive heart failure): Code(s): I50.9 - Heart failure, unspecified Status: Acute Assessment and Plan: Fluid overload (3) Elevated troponin: Code(s): R77.8 - Other specified abnormalities of plasma proteins Status: Acute Assessment and Plan: Nonischemic myocardial injury No new EKG changes Patient with recent left and right heart catheterization back in September Continue to monitor (4) Mitral valve regurgitation: Code(s): I34.0 - Nonrheumatic mitral (valve) insufficiency Status: Acute Assessment and Plan: A status post repair (5) Acute renal insufficiency: Code(s): N28.9 - Disorder of kidney and ureter, unspecified Status: Acute Assessment and Plan: Patient will has been on diuretics metolazone and Lasix Patient also with recent mitral valve repair Renal ultrasound Avoid nephrotoxin Nephrology consult Subjective Date/time seen: 01/06/21 14:19 Chief Complaint: Shortness of breath Narrative: This is a 80-year-old female with past medical history significant for severe mitral regurgitation, patient cyst is status post mitral valve repair. She presented to the emergency room through EMS due to shortness of breath upon arrival to emergency room patient was found to have a saturation of 75% and require BiPAP and ABG showed CO2 retention. Patient is unable to give any history as she was obtunded and at the time of my visit she was on BiPAP and still confused. She had elevated brain natriuretic peptide, elevated troponin and chest x-ray with significant for lung infiltrates. Decision was made to admit patient to telemetry unit for further management evaluation and treatment. 01/06 patient is 80-year-old female presented emergency department with hypoxia and high hypercapnic respiratory failure currently on BiPAP unable to provide any review of symptom. patient is seen pulmonology suspect cardiac issues patient seen by cardiology and further recommendation to follow. Review of Systems Review of Systems: ROS unobtainable: Yes unobtainable due to medical condition (Altered mental status confusion and respiratory failure) Exam Narrative: Exam Narrative: Patient is comfortable, NAD HEENT: eyes are clear and none icteric on BiPAP LUNGS: tachypnea ABD: obese distended Lower extremities: no edema SKIN: nonjaundiced Neuro: on BiPAP.
--- NOTE | 2021-01-06 15:04 | PM.CNCAR ---
Assessment and Plan Assessment and plan (1) Acute on chronic respiratory failure with hypoxia and hypercapnia: Code(s): J96.21 - Acute and chronic respiratory failure with hypoxia; J96.22 - Acute and chronic respiratory failure with hypercapnia Status: Acute Assessment and Plan: Complicated clinical picture. Given improvement in EF heart failure with preserved ejection fraction acute on chronic relevant here. Appears to be a mixed picture with acute on chronic hypoxic and hypercarbic respiratory failure suspect multifactorial with some evidence for contribution from volume overload, hypoventilation, postoperative status. Clinically, per patient's she was not eating or drinking for 2 days prior to admission. nonetheless, given the extent of edema, chest x-ray, BNP and lung exam is suggestive of some pulmonary vascular congestion. However, her acute renal failure also is contributing. May try gentle diuresis although of would exercise caution in this regard with close observation of renal function, volume status and output and daily weight. Initiate IV Lasix 40 mg q12h and observe response. will need to monitor nutritional status very closely. (2) Status post mitral valve replacement: Code(s): Z95.2 - Presence of prosthetic heart valve Status: Acute Assessment and Plan: Prophylactic antibiotics prior to surgical procedures. 2D echo reveals normal functioning mitral valve with no regurgitation. EF has improved from 35-40% now 55%. (3) CHF (congestive heart failure): Code(s): I50.9 - Heart failure, unspecified Status: Acute Assessment and Plan: As above. (4) ISMAEL (acute kidney injury): Code(s): N17.9 - Acute kidney failure, unspecified Status: Acute Assessment and Plan: Nephrology consultation appreciated. Monitor function closely. Discharge creatinine on 12/06/2020 was 1.12. (5) Elevated troponin: Code(s): R77.8 - Other specified abnormalities of plasma proteins Status: Acute Assessment and Plan: Mild elevation, flat without anginal symptoms with minimal nonobstructive CAD consistent with a type 2 infarction not acute coronary syndrome in setting decompensated heart failure, acute renal failure and underlying anemia with hypoxic respiratory failure presentation. No indication for ischemic evaluation. (6) Paroxysmal atrial fibrillation: Code(s): I48.0 - Paroxysmal atrial fibrillation Status: Acute Assessment and Plan: Postoperative atrial fibrillation, complete heart block status post [place] [employer] dual chamber pacemaker. Patient is currently ventricular paced. Not on anticoagulation due to retroperitoneal hematoma at outside hospital. (7) Altered mental status: Code(s): R41.82 - Altered mental status, unspecified Status: Acute Assessment and Plan: improving, per primary service. (8) Anemia: Code(s): D64.9 - Anemia, unspecified Status: Acute Assessment and Plan: Stable. Monitor H&H. (9) Status post placement of cardiac pacemaker: Code(s): Z95.0 - Presence of cardiac pacemaker Status: Acute Assessment and Plan: Normal functioning device. History of Present Illness History of Present Illness Consult date/time: Date of service: 01/06/21 15:04 Cardiology consultation at the request of Dr. Bernal for our opinion regarding edema, elevated troponin status post mitral valve repair. Requesting physician: Corey Bernal DO Consult reason: congestive heart failure Reason For Visit: Acute Resp Failure w/Hypercapnia,CHF,Acute Renal F Narrative: Patient is a 80-year-old female followed by Dr. Peterson with past medical history significant for nonischemic cardiomyopathy, heart failure with reduced ejection fraction, paroxysmal atrial fibrillation, severe mitral valve regurgitation status post mitral valve replacement with 29 mm epic porci
--- NOTE | 2021-01-06 15:09 | PM.CNPUL ---
Assessment and Plan Assessment and plan (1) Respiratory failure with hypoxia and hypercapnia: Code(s): J96.91 - Respiratory failure, unspecified with hypoxia; J96.92 - Respiratory failure, unspecified with hypercapnia Status: Acute Assessment and Plan: Patient has chronic hypercarbic respiratory failure with an initial blood gas of 7.37/69/107 on 4 L nasal cannula and a serum bicarbonate level of greater than 40. I have 2s past serum bicarbonate levels on 08/31/2020 her serum bicarbonate level was 31, on 09/14/2020 her serum bicarbonate level was 30. patient has no history of smoking and no exposure to secondhand smoke. She has no emphysema on her CT angiogram of the chest on 08/16/2020. Current etiologies of her chronic hypercarbic respiratory failure include fluid overload with congestion and bilateral pleural effusions, status post median sternotomy on 10/09/2020 which can result in decreased lung function for 3-6 months, possible obesity hypoventilation syndrome and possible sleep apnea. I see no evidence of COPD, asthma, interstial lung disease or infection at this time. At this time I agree with as aggressive diuresis as tolerated by cardiac and renal systems (Cr 2.7 and now 2.5) for her fluid overload by cardiology and hospitalist. She does not need acetazolamide as she is not alkalotic at this time and I agree with DC. Check CXR in morning. I will continue nocturnal noninvasive ventilation tonight while she is being diureses. Pressure were high on BiPAP and I will place on AVAPS RR 20, TV 500, EPAP 5, Min I PAP 6, MAx IPAP 25, 30% tonight and check a ABG in the morning. Will reassess hypercarbia without noninvasive after diuresis and if no improvement will consider thoricentesis to optimize pulmonary status. Will follow with you. History of Present Illness History of Present Illness Consult date: 01/06/21 Reason for consult: hypoxemia Chief complaint: Acute Resp Failure w/Hypercapnia,CHF,Acute Renal F Narrative: This is a new pulmonary consult for hypercarbic and hypoxemic respiratory failure. 80-year-old woman with a history of mitral valve surgery on 10/09/2020 apparently this was complicated by altered mental status that has never resolved completely postoperatively, permanent pacemaker, congestive heart failure, presented to the emergency due room on 01/05 with shortness of breath. Patient was hypoxemic when she presented and arterial blood gas on 4 L nasal cannula demonstrated a pH of 7.37/69/107. Patient had a chest x-ray that demonstrated cardiomegaly, congestion, right pleural effusion group home upper hemithorax and a dual-chamber [place] [address], a troponin of 1.07 and a creatinine of 2.7. Patinet was placed on BiPAP 14/8 and her repeat blood gas showed a pH of 7.38 / 77/100. Patient was then placed on BiPAP 20/635% with a P and a blood gas showed a pH of 7.41/70/110. Patient wore the BiPAP 20/630% overnight and her blood gas this morning was 7.43/66/99. Patient had a serum bicarbonate of greater than 40. 01/06 Patient was diuresed and had -800 overnight. She was wearing BiPAP when I entered the room and she was awake following commands comfortable in stating she was breathing much better. We removed the BiPAP and placed her on 5 L nasal cannula and her saturations were 97%. We decreased her oxygen to 3 L and her saturations were 96%. The patient denied any fever, chills, rigors, cough, change in her minimal daily phlegm production of 1-2 times of phlegm production a day, no hemoptysis. At baseline patient can walk half a block. Patient is a never smoker and never exposed to secondhand smoke. 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 Patient has never been given history of any COPD or lung disease. DATA: EXAMINATION: CTA chest PE protocol EXAM DATE: 08/16/2020 15:09 INDICATION: Shortness o
[2021-01-06] MEDS: METOPROLOL TARTRATE 25 MG TABLET PO ×2 (15:30→20:39)
[2021-01-06] MEDS: metOLazone 2.5 MG TABLET PO (15:30)
[2021-01-06] MEDS: ATORVASTATIN 20 MG TABLET PO (15:30)
--- NOTE | 2021-01-06 15:44 | PM.CNNEP ---
Assessment and Plan Assessment and plan (1) ISMAEL (acute kidney injury): Code(s): N17.9 - Acute kidney failure, unspecified Status: Acute Assessment and Plan: creatinine was normal on discharge from [facility] ~ a month ago unclear as to what precipitated ISMAEL/ARF was on diuretic therapy prior to admission concern would be pre-renal factors from poor oral intake -- however, she has evidence of volume overload on admission perhaps she is intravascularly deplete despite outward signs of volume overload -- perhaps her volume status is more of a manifestation of 3rd spacing of fluid due to decreased mobility and deconditioning from recent hospital stay(?) follow repeat labs and UOP (2) Respiratory failure with hypoxia and hypercapnia: Code(s): J96.91 - Respiratory failure, unspecified with hypoxia; J96.92 - Respiratory failure, unspecified with hypercapnia Status: Acute Assessment and Plan: as evidence by exam/labs on admission Pulmonary consultation noted continue current therapy (3) CHF (congestive heart failure): Code(s): I50.9 - Heart failure, unspecified Status: Acute Assessment and Plan: trial of diuretics and assess response this may worsen her kidney function but I am not sure we have a choice (4) Altered mental status: Code(s): R41.82 - Altered mental status, unspecified Status: Acute Assessment and Plan: follow mentation underlying dementia(?) (5) Anemia: Code(s): D64.9 - Anemia, unspecified Status: Acute Assessment and Plan: probably due to acute issues and recent hospitalization follow H/H Long and extensive discussion (> 20 minutes) with patient's at bedside regarding the complex siutation we are in (ISMAEL with volume overload requiring diuresis) and the tentative plan of care. Will continue to follow. History of Present Illness Reason for Consult Consult date: 01/06/21 Reason for consult: acute renal failure Chief Complaint Chief complaint: Acute Resp Failure w/Hypercapnia,CHF,Acute Renal F History of Present Illness Narrative: Most of the information I have obtained for review of the electronic medical record as well as discussion with the patient's at bedside as is difficult to get a full and complete history from the patient given her current mental state. The patient is a 80-year-old female with an extensive past medical history as outlined below who presented to [facility] Emergency room via EMS for complaints of shortness of breath. The patient was just recently discharged home in late November of 2020 from [facility] due to her multiple medical issues and problems relating to her cardiomyopathy, heart failure, AFib, valvular heart disease and fluctuating mental status thought to be secondary to delirium /infection. Following her discharge over the last few days, his been noted that she has not been eating very well and is becoming more and more confused. Apparently it was noted by home PT OT that she was quite hypoxic by their testing and recommended the patient be taken to the emergency room for further evaluation. Workup and evaluation in the emergency room after EMS was called noted her severe hypoxia with reported O2 sats of 75% on room air. Associated symptoms including chronic lower extremity edema that does not appear to be any worse than it has been the last several weeks in association with the a for mentioned poor oral intake and difficulty getting her to take her medications. is difficult to get a history from the patient as she is somewhat incoherent and answers questions on related to the actual question asked. Workup and evaluation emergency room demonstrated the patient to be hemodynamically stable, elevated BNP of around 18,000, a chest x-ray with right lower pleural effusion pulmonary vascular congestion as well as the presence of her dual-gee
[2021-01-06] MEDS: QUEtiapine FUMARATE 25 MG TABLET 50 MG PO (20:38)
[2021-01-06] MEDS: FUROSEMIDE INJ 40 MG/4 ML VIAL IV PUSH (20:39)
[2021-01-07] VITALS (19 sets, daily range): BP systolic 98–121; BP diastolic 49–94; PULSE 73–90; RESP 14–24; TEMP 36.4–36.9; O2SAT 94–100
[2021-01-07 05:42] LABS: Hematocrit 27.5 % (37.0-47.0); Hemoglobin 7.6 g/dL (12.0-15.0); Mean Corpuscular HGB Conc 27.6 g/dl (32-36); Mean Corpuscular Hemoglobin 21.6 pg (26-34); Mean Corpuscular Volume 78.1 fl (80-100); Mean Platelet Volume 10.3 fl (7.4-10.4); Platelet Count Result 252 k/mm3 (150-375); Red Blood Count 3.52 M/mm3 (4.2-5.4); Red Cell Distribution Width 19.4 % (11.5-14.5); White Blood Count 7.6 K/mm3 (4.5-10.0)
[2021-01-07 05:51] LABS: Alveolar/Arterial O2 Gradient 47.2 mmHg; Fractional Inspired Oxygen 30 %; HCO3 ABG 46.1 mEq/l (22.0-26.0); Oxygen Content ABG 12.2 %vol (16.0-22.0); Oxygen Saturation ABG 95.8 % (95.0-100.0); Oxyhemoglobin 94.6 % THb (90.0-100.0); PO2 ABG 82.1 mmHg (80.0-100.0); PO2 FiO2 Ratio Arterial Blood 2.74 %; Total Hemoglobin 9.1 g/dL (12.0-18.0); pH ABG 7.424 (7.350-7.450)
[2021-01-07 05:55] LABS: Device NON-INVASIVE VENT; Modified Allen's Test Pass; Site Drawn LEFT RADIAL
[2021-01-07 05:57] LABS: Non-Invasive Vent Rate 20 /MIN
[2021-01-07 05:58] LABS: Non-Invasive Expiratory Pressure 5 CMH2O
[2021-01-07 06:09] LABS: Blood Urea Nitrogen 90 mg/dL (7-17); Calcium 8.9 mg/dL (8.4-10.2); Carbon Dioxide > 40 mmol/L (22-30); Chloride 82 mmol/L (98-107); Estimated CRCL calculation 21 ml/min; Estimated Glomerular Filt Rate 21; Glucose 103 mg/dL (65-105); Phosphorus 4.9 mg/dL (2.5-4.5); Potassium 3.1 mmol/L (3.4-5.0); Sodium 131 mmol/L (137-145)
[2021-01-07] MEDS: ENOXAPARIN 30 MG/0.3 ML SYRINGE SUB-Q (08:34)
[2021-01-07] MEDS: metOLazone 2.5 MG TABLET PO (08:34)
[2021-01-07] MEDS: ATORVASTATIN 20 MG TABLET PO (08:34)
[2021-01-07] MEDS: ASPIRIN 81 MG ENTERIC TABLET PO (08:34)
[2021-01-07] MEDS: DOCUSATE SODIUM 100 MG CAPSULE PO (08:35)
[2021-01-07] MEDS: METOPROLOL TARTRATE 25 MG TABLET PO (08:35)
[2021-01-07] MEDS: POTASSIUM CHLORIDE 20 MEQ TABLET 40 MEQ PO (10:34)
--- NOTE | 2021-01-07 11:13 | PM.PNPUL ---
Progress Note: A&P Assessment and Plan (1) Respiratory failure with hypoxia and hypercapnia: Code(s): J96.91 - Respiratory failure, unspecified with hypoxia; J96.92 - Respiratory failure, unspecified with hypercapnia Status: Acute Assessment and Plan: Patient has chronic hypercarbic respiratory failure with an initial blood gas of 7.37/69/107 on 4 L nasal cannula and a serum bicarbonate level of greater than 40. I have reviewed past serum bicarbonate levels on 08/31/2020 her serum bicarbonate level was 31, on 09/14/2020 her serum bicarbonate level was 30. Echo without RV or RA changes with PASP 33. Patient has no history of smoking and no exposure to secondhand smoke. She has no emphysema on her CT angiogram of the chest on 08/16/2020. I do not think she has COPD. No history of asthma symptoms. I see no evidence of interstial lung disease or infection at this time. Current etiologies of her chronic hypercarbic respiratory failure include fluid overload with congestion and bilateral pleural effusions, status post median sternotomy on 10/09/2020 which can result in decreased lung function for 3-6 months, possible obesity hypoventilation syndrome and possible sleep apnea. 01/06 At this time I agree with as aggressive diuresis as tolerated by cardiac and renal systems (Cr 2.7 and now 2.5) for her fluid overload by cardiology and hospitalist. She does not need acetazolamide as she is not alkalotic at this time and I agree with DC. Check CXR in morning. I will continue nocturnal noninvasive ventilation tonight while she is being diureses. Pressure were high on BiPAP and I will place on AVAPS RR 20, TV 500, EPAP 5, Min I PAP 6, MAx IPAP 25, 30% tonight and check a ABG in the morning. Will reassess hypercarbia without noninvasive after diuresis and if no improvement will consider thoricentesis to optimize pulmonary status. 01/07 Patient wore her AVAPS mode with a rate of 20, tidal volume 500, EPAP 5, minimal inspiratory pressure 6, maximal inspiratory pressure 25, 30% FiO2 overnight. Patient had a good arterial blood gas at the end of the night with a pH of 7.42 /72/82 on the current settings. Patient is currently on 3 L nasal cannula with saturations 100%, goal saturations 90-94%. Patient denies any fever, chills, rest shortness of breath at this time. Patient does state she has a cough. Cr 2.30. CXR with worsening congestion. Afebrile, no phelgm production, and WBC 7.6K. I do not think she has pneumonia eric gree with no antibiotics currently. Diuresis per cardiology, nephrology and hospitalist teams. Will follow with you. Subjective Date/time seen: 01/07/21 11:13 Interval history: 80-year-old woman with a history of mitral valve surgery on 10/09/2020 apparently this was complicated by altered mental status/delerium that has never resolved completely postoperatively, permanent pacemaker, congestive heart failure, the Cardiology consult noted that the patient had a right thoracentesis on 11/20/20 of 120 mL and this effusion was determined to be transudative. presented to the emergency due room on 01/05 with shortness of breath. Patient was hypoxemic when she presented and arterial blood gas on 4 L nasal cannula demonstrated a pH of 7.37/69/107. Patient had a chest x-ray that demonstrated cardiomegaly, congestion, right pleural effusion fpc upper hemithorax and a dual-chamber [place] [address], a troponin of 1.07 and a creatinine of 2.7. Fernando was placed on BiPAP 14/8 and her repeat blood gas showed a pH of 7.38 / 77/100. Patient was then placed on BiPAP 20/635% with a P and a blood gas showed a pH of 7.41/70/110. Patient wore the BiPAP 20/630% overnight and her blood gas this morning was 7.43/66/99. Patient had a serum bicarbonate of greater than 40. 01/06 Patient was diuresed and had -800 overnight. She was wearing BiPAP when I entered the room and she was awake following commands comfortable in
--- NOTE | 2021-01-07 13:10 | PM.IMPN ---
Progress Note: A&P Assessment and Plan (1) Acute on chronic respiratory failure with hypoxia and hypercapnia: Code(s): J96.21 - Acute and chronic respiratory failure with hypoxia; J96.22 - Acute and chronic respiratory failure with hypercapnia Status: Acute Assessment and Plan: Admit to telemetry unit Continues BiPAP ABG reviewed Chest x-ray reviewed Likely secondary to fluid overload Diuresing Gillis in Daily weight Daily intake and output Cardiology consult 01/07/21 13:10 Chief Complaint: Shortness of breath Narrative: This is a 80-year-old female with past medical history significant for severe mitral regurgitation, patient cyst is status post mitral valve repair. She presented to the emergency room through EMS due to shortness of breath upon arrival to emergency room patient was found to have a saturation of 75% and require BiPAP and ABG showed CO2 retention. Patient is unable to give any history as she was obtunded and at the time of my visit she was on BiPAP and still confused. She had elevated brain natriuretic peptide, elevated troponin and chest x-ray with significant for lung infiltrates. Decision was made to admit patient to telemetry unit for further management evaluation and treatment. 01/06 patient is 80-year-old female presented emergency department with hypoxia and high hypercapnic respiratory failure currently on BiPAP unable to provide any review of symptom. patient is seen pulmonology suspect cardiac issues patient seen by cardiology and further recommendation to follow. 01/07 patient with shortness of breath patient is seen by Cardiology and pulmonology and they both agree most likely secondary to volume overload and 3rd spacing patient is being diurese, recent cardiac echo showed mild reduction in systolic dysfunction with ejection fraction of 55%, grade 2 diastolic dysfunction, most likely patient acute on chronic diastolic dysfunction her symptoms are improving and currently patient is off BiPAP on nasal cannula, unfortunately patient is unable to provide any review of symptom most likely secondary to dementia, will continue to monitor once clinically stable will have a PT OT evaluate the patient and further recommendation to follow. (2) CHF (congestive heart failure): Code(s): I50.9 - Heart failure, unspecified Status: Acute Assessment and Plan: Fluid overload (3) Elevated troponin: Code(s): R77.8 - Other specified abnormalities of plasma proteins Status: Acute Assessment and Plan: Nonischemic myocardial injury No new EKG changes Patient with recent left and right heart catheterization back in September Continue to monitor (4) Mitral valve regurgitation: Code(s): I34.0 - Nonrheumatic mitral (valve) insufficiency Status: Acute Assessment and Plan: A status post repair (5) Acute renal insufficiency: Code(s): N28.9 - Disorder of kidney and ureter, unspecified Status: Acute Assessment and Plan: Patient will has been on diuretics metolazone and Lasix Patient also with recent mitral valve repair Renal ultrasound Avoid nephrotoxin Nephrology consult Subjective Date/time seen: 01/07/21 13:10 Chief Complaint: Shortness of breath Narrative: This is a 80-year-old female with past medical history significant for severe mitral regurgitation, patient cyst is status post mitral valve repair. She presented to the emergency room through EMS due to shortness of breath upon arrival to emergency room patient was found to have a saturation of 75% and require BiPAP and ABG showed CO2 retention. Patient is unable to give any history as she was obtunded and at the time of my visit she was on BiPAP and still confused. She had elevated brain natriuretic peptide, elevated troponin and chest x-ray with significant for lung infiltrates. Decision was made to admit patient to telemetry unit for further management evaluation and treatment. 06
--- NOTE | 2021-01-07 15:08 | PM.PNNEP ---
Progress Note: A&P Assessment and Plan (1) ISMAEL (acute kidney injury): Code(s): N17.9 - Acute kidney failure, unspecified Status: Acute Assessment and Plan: creatinine was normal on discharge from [facility] ~ a month ago unclear as to what precipitated ISMAEL/ARF was on diuretic therapy prior to admission concern would be pre-renal factors from poor oral intake -- however, she has evidence of volume overload on admission perhaps she is intravascularly deplete despite outward signs of volume overload -- perhaps her volume status is more of a manifestation of 3rd spacing of fluid due to decreased mobility and deconditioning from recent hospital stay(?) follow repeat labs and UOP (2) Respiratory failure with hypoxia and hypercapnia: Code(s): J96.91 - Respiratory failure, unspecified with hypoxia; J96.92 - Respiratory failure, unspecified with hypercapnia Status: Acute Assessment and Plan: as evidence by exam/labs on admission Pulmonary consultation noted continue current therapy (3) CHF (congestive heart failure): Code(s): I50.9 - Heart failure, unspecified Status: Acute Assessment and Plan: did not do well with diuretic trial will start IV albumin chased by IV bumex to see if we can diuresis while maintaining stable BP and preventing further decline in kidney function other alternatives to consider is possibly a diuretic gtt but I would first see she responds with IV albumin + IV bumex in the next 24 - 48 hours.... (4) Altered mental status: Code(s): R41.82 - Altered mental status, unspecified Status: Acute Assessment and Plan: follow mentation underlying dementia(?) (5) Anemia: Code(s): D64.9 - Anemia, unspecified Status: Acute Assessment and Plan: probably due to acute issues and recent hospitalization follow H/H Will continue to follow. Subjective Date/time seen: 01/07/21 15:08 Limited diuresis over the last 24 hours further complicated by relative hypotension; she does not appear in any acute distress; renal function somewhat better; no acute distress. Exam Narrative: Exam Narrative: General: WD/WN malefemale in NAD Heart: normal S1 and S2; no rub Lungs: decreased breath sounds and bibasilar crackles Abdomen: soft, nontender, nondistended, positive bowel sounds Extremities: no cyanosis or clubbing; 1+ edema Skin: warm and dry Objective Data Vital Signs Vital Signs: Vital Signs Temp Pulse Resp BP Pulse Ox 01/07/21 14:00 80 01/07/21 12:00 80 98 01/07/21 11:33 36.4 C 80 14 98/51 L 100 01/07/21 10:03 100 01/07/21 10:00 80 01/07/21 08:35 80 01/07/21 08:00 36.6 C 80 20 121/94 H 98 01/07/21 06:00 80 01/07/21 05:51 81 21 H 100 01/07/21 04:00 80 20 99/49 L 100 01/07/21 03:15 80 24 H 100 01/07/21 02:00 80 01/07/21 00:00 80 20 100 01/06/21 23:49 36.6 C 80 20 112/57 L 100 01/06/21 23:05 80 22 H 100 01/06/21 22:00 80 01/06/21 20:39 80 01/06/21 20:00 80 18 100 01/06/21 19:40 36.4 C L 80 18 115/45 L 100 01/06/21 18:00 80 Intake/Output Intake/Output: Intake & Output 01/04/21 01/05/21 01/06/21 01/07/21 23:59 23:59 23:59 23:59 Intake Total 540 1680 Output Total 1450 1050 Balance -910 630 Meds/Results Medications: Active Medications Generic Name Dose Route Start Last Admin Trade Name Troy PRN Reason Stop Dose Admin Aspirin 81 mg 01/06/21 09:00 01/07/21 08:34 Aspirin 81 Mg Enteric Tablet PO 81 mg DAILY RAGHAV Administration Atorvastatin Calcium 20 mg 01/06/21 09:00 01/07/21 08:34 Atorvastatin 20 Mg Tablet PO 20 mg DAILY RAGHAV Administration Docusate Sodium 100 mg 01/06/21 09:00 01/07/21 08:35 Docusate Sodium 100 Mg Capsule PO 100 mg DAILY RAGHAV Administration Enoxaparin Sodium 30 mg 01/06/21 09:00 01/07/21 08:34 E
[2021-01-07] MEDS: FUROSEMIDE INJ 40 MG/4 ML VIAL IV PUSH (15:13)
--- NOTE | 2021-01-07 15:27 | PM.PNCARD ---
Progress Note: A&P Assessment and Plan (1) Acute on chronic respiratory failure with hypoxia and hypercapnia: Code(s): J96.21 - Acute and chronic respiratory failure with hypoxia; J96.22 - Acute and chronic respiratory failure with hypercapnia Status: Acute Assessment and Plan: Complicated clinical picture. Given improvement in EF heart failure with preserved ejection fraction acute on chronic relevant here. Appears to be a mixed picture with acute on chronic hypoxic and hypercarbic respiratory failure suspect multifactorial with some evidence for contribution from volume overload, hypoventilation, postoperative status. -Unfortunately and unsurprisingly she is not responding very well to diuresis and now she is more hypertensive. Will hold Metolazone and IV Lasix for now. Awaiting Renal recommendations, appreciate their input. (2) Status post mitral valve replacement: Code(s): Z95.2 - Presence of prosthetic heart valve Status: Acute Assessment and Plan: Prophylactic antibiotics prior to surgical procedures. 2D echo reveals normal functioning mitral valve with no regurgitation. EF has improved from 35-40% now 55%. (3) CHF (congestive heart failure): Code(s): I50.9 - Heart failure, unspecified Status: Acute Assessment and Plan: As above. while she has significant peripheral edema I suspect much of this is third spacing as well. Therefore, I will hold off on diuretic therapy for now, monitor BP and renal function in response. She may, in fact, require transient IVF support if hypotension an issue particularly if her oral intake is inconsistent or inadequate. (4) ISMAEL (acute kidney injury): Code(s): N17.9 - Acute kidney failure, unspecified Status: Acute Assessment and Plan: Nephrology consultation appreciated, pending. Monitor function closely. Discharge creatinine on 12/06/2020 at was 1.12. (5) Elevated troponin: Code(s): R77.8 - Other specified abnormalities of plasma proteins Status: Acute Assessment and Plan: Mild elevation, flat without anginal symptoms with minimal nonobstructive CAD consistent with a type 2 infarction not acute coronary syndrome in setting decompensated heart failure, acute renal failure and underlying anemia with hypoxic respiratory failure presentation. No indication for ischemic evaluation. (6) Paroxysmal atrial fibrillation: Code(s): I48.0 - Paroxysmal atrial fibrillation Status: Acute Assessment and Plan: Postoperative atrial fibrillation, complete heart block status post [place] [employer] dual chamber pacemaker. Patient is currently ventricular paced. Not on anticoagulation due to retroperitoneal hematoma at outside hospital. (7) Altered mental status: Code(s): R41.82 - Altered mental status, unspecified Status: Acute Assessment and Plan: improving, per primary service. (8) Anemia: Code(s): D64.9 - Anemia, unspecified Status: Acute Assessment and Plan: Stable. Monitor H&H. (9) Status post placement of cardiac pacemaker: Code(s): Z95.0 - Presence of cardiac pacemaker Status: Acute Assessment and Plan: Normal functioning device. Subjective Date/time seen: Date of Service: 01/07/21 15:27 Follow up for edema s/p MVR, possible CHF Pt a bit more awake this afternoon. Denies SOB or CP. BP a little low late this AM 98/51. Lasix 40mg IVx1 last night marginal urine output. BiPAP, O2 stable. Paced on telemetry. Apparently felt a little lightheaded sitting up earlier today. Metolazone 2.5mg given this AM. Review of Systems Review of Systems: All systems reviewed & are unremarkable except as noted in HPI and below ROS unobtainable: Yes unobtainable due to mental status Constitutional: Constitutional: Reports as per HPI, Reports no additional constitutional complaints and Reports fatigue Eyes: Eyes: Reports as per HPI and Re
[2021-01-07] MEDS: ALBUMIN HUMAN 25% 12.5 GM/50ML 50 ML IVPB (17:58)
[2021-01-07] MEDS: BUMETANIDE INJ 1 MG/4 ML VIAL IV PUSH (19:13)
[2021-01-07 20:35] LABS: Glucose Point of Care 169 mg/dl (65-105)
[2021-01-07] MEDS: QUEtiapine FUMARATE 25 MG TABLET 50 MG PO (20:35)
[2021-01-08] VITALS (22 sets, daily range): BP systolic 96–125; BP diastolic 53–65; PULSE 73–81; RESP 16–24; TEMP 36.1–37; O2SAT 84–100; BMI 10.0
[2021-01-08 05:13] LABS: Hematocrit 27.5 % (37.0-47.0); Hemoglobin 7.6 g/dL (12.0-15.0); Mean Corpuscular HGB Conc 27.6 g/dl (32-36); Mean Corpuscular Hemoglobin 21.8 pg (26-34); Mean Corpuscular Volume 78.8 fl (80-100); Mean Platelet Volume 10.1 fl (7.4-10.4); Platelet Count Result 229 k/mm3 (150-375); Red Blood Count 3.49 M/mm3 (4.2-5.4); Red Cell Distribution Width 19.6 % (11.5-14.5); White Blood Count 8.2 K/mm3 (4.5-10.0)
[2021-01-08 05:24] LABS: Albumin Level 3.3 g/dL (3.5-5.1); Blood Urea Nitrogen 83 mg/dL (7-17); Calcium 8.9 mg/dL (8.4-10.2); Carbon Dioxide > 40 mmol/L (22-30); Chloride 81 mmol/L (98-107); Estimated CRCL calculation 22 ml/min; Estimated Glomerular Filt Rate 23; Glucose 128 mg/dL (65-105); Phosphorus 4.4 mg/dL (2.5-4.5); Potassium 3.3 mmol/L (3.4-5.0); Sodium 131 mmol/L (137-145)
[2021-01-08] MEDS: DOCUSATE SODIUM 100 MG CAPSULE PO (08:12)
[2021-01-08] MEDS: PSYLLIUM POWDER PACKET 1 PACKET PO (08:12)
[2021-01-08] MEDS: METOPROLOL TARTRATE 25 MG TABLET PO ×2 (08:12→20:27)
[2021-01-08] MEDS: ASPIRIN 81 MG ENTERIC TABLET PO (08:12)
[2021-01-08] MEDS: ENOXAPARIN 30 MG/0.3 ML SYRINGE SUB-Q (08:12)
[2021-01-08] MEDS: ATORVASTATIN 20 MG TABLET PO (08:12)
[2021-01-08] MEDS: ALBUMIN HUMAN 25% 12.5 GM/50ML 50 ML IVPB ×3 (08:15→17:04)
[2021-01-08] MEDS: BUMETANIDE INJ 1 MG/4 ML VIAL IV PUSH ×3 (08:55→18:04)
--- NOTE | 2021-01-08 09:31 | PCPTNOTE ---
Attempted to see patient for PT, however patient unable to wake up enough to participate in therapy. Patient would wake up and state yes to therapy and then close her eyes. Attempted LE exercises in bed, patient was able to perform 6 reps of ankle pumps and patient fell back to sleep. Patient was unable to wake up enough to finish LE exercises. RN aware.
[2021-01-08] MEDS: POTASSIUM CHLORIDE 20 MEQ TABLET 40 MEQ PO (10:06)
[2021-01-08 10:41] LABS: Magnesium 2.8 mg/dL (1.6-2.3)
--- NOTE | 2021-01-08 11:42 | PM.PNPUL ---
Progress Note: A&P Assessment and Plan (1) Respiratory failure with hypoxia and hypercapnia: Code(s): J96.91 - Respiratory failure, unspecified with hypoxia; J96.92 - Respiratory failure, unspecified with hypercapnia Status: Acute Assessment and Plan: Patient has chronic hypercarbic respiratory failure with an initial blood gas of 7.37/69/107 on 4 L nasal cannula and a serum bicarbonate level of greater than 40. I have reviewed past serum bicarbonate levels on 08/31/2020 her serum bicarbonate level was 31, on 09/14/2020 her serum bicarbonate level was 30. Echo without RV or RA changes with PASP 33. Patient has no history of smoking and no exposure to secondhand smoke. She has no emphysema on her CT angiogram of the chest on 08/16/2020. I do not think she has COPD. No history of asthma symptoms. I see no evidence of interstial lung disease or infection at this time. Current etiologies of her chronic hypercarbic respiratory failure include fluid overload with congestion and bilateral pleural effusions, status post median sternotomy on 10/09/2020 which can result in decreased lung function for 3-6 months, possible obesity hypoventilation syndrome and possible sleep apnea. 01/06 At this time I agree with as aggressive diuresis as tolerated by cardiac and renal systems (Cr 2.7 and now 2.5) for her fluid overload by cardiology and hospitalist. She does not need acetazolamide as she is not alkalotic at this time and I agree with DC. Check CXR in morning. I will continue nocturnal noninvasive ventilation tonight while she is being diureses. Pressure were high on BiPAP and I will place on AVAPS RR 20, TV 500, EPAP 5, Min I PAP 6, MAx IPAP 25, 30% tonight and check a ABG in the morning. Will reassess hypercarbia without noninvasive after diuresis and if no improvement will consider thoricentesis to optimize pulmonary status. 01/07 Patient wore her AVAPS mode with a rate of 20, tidal volume 500, EPAP 5, minimal inspiratory pressure 6, maximal inspiratory pressure 25, 30% FiO2 overnight. Patient had a good arterial blood gas at the end of the night with a pH of 7.42 /72/82 on the current settings. Patient is currently on 3 L nasal cannula with saturations 100%, goal saturations 90-94%. Patient denies any fever, chills, rest shortness of breath at this time. Patient does state she has a cough. Cr 2.30. CXR with worsening congestion. Afebrile, no phelgm production, and WBC 7.6K. I do not think she has pneumonia eric gree with no antibiotics currently. Diuresis per cardiology, nephrology and hospitalist teams. 01/08 Patient tells me that she wore her noninvasive ventilation last night but the nursing staff says maybe she wore it for less than an hour and then refused it. I asked the patient if it was painful or it was uncomfortable breathing and she says no. It should be noted that the patient remains confused with tangential and irrelevant answers to some questions. She is comfortable on 2 L nasal cannula saturations 92. I am concerned that patient has altered mental status -delirium will make implementing home noninvasive ventilation difficult. I will try AVAPS mode again tonight and see if she will agree to wear it. Will follow with you. Subjective Date/time seen: 01/08/21 11:42 Interval history: 80-year-old woman with a history of mitral valve surgery on 10/09/2020 apparently this was complicated by altered mental status/delerium that has never resolved completely postoperatively, permanent pacemaker, congestive heart failure, the Cardiology consult noted that the patient had a right thoracentesis on 11/20/20 of 120 mL and this effusion was determined to be transudative. presented to the emergency due room on 01/05 with shortness of breath. Patient was hypoxemic when she presented and arterial blood gas on 4 L nasal cannula demonstrated a pH of 7.37/69/107. Patient had a chest x-ray that demonstrated cardiomegaly, congesti
--- NOTE | 2021-01-08 14:27 | PM.PNCARD ---
Progress Note: A&P Assessment and Plan (1) Acute on chronic respiratory failure with hypoxia and hypercapnia: Code(s): J96.21 - Acute and chronic respiratory failure with hypoxia; J96.22 - Acute and chronic respiratory failure with hypercapnia Status: Acute Assessment and Plan: Complicated clinical picture. Given improvement in EF 55% (up from 35%) and durable MVR without MR, heart failure with preserved ejection fraction acute on chronic would be considered although presentation history more suggestive of intravascular volume depletion and prerenal azotemia. Appears to be a mixed picture with acute on chronic hypoxic and hypercarbic respiratory failure suspect multifactorial etiology. (2) Status post mitral valve replacement: Code(s): Z95.2 - Presence of prosthetic heart valve Status: Acute Assessment and Plan: Prophylactic antibiotics prior to surgical procedures. 2D echo reveals normal functioning mitral valve with no regurgitation. EF has improved from 35-40% now 55%. (3) CHF (congestive heart failure): Code(s): I50.9 - Heart failure, unspecified Status: Acute Assessment and Plan: As above. Suspect musch of her peripheral edema is secondary to third spacing and malnutrition, deconditioning. -I agree with and appreciate Nephrology assessment and recommendations as well as Pulmonology. Monitor response to intravenous Bumex with albumin. Monitor BP very closely. (4) ISMAEL (acute kidney injury): Code(s): N17.9 - Acute kidney failure, unspecified Status: Acute Assessment and Plan: Nephrology consultation appreciated, pending. Monitor function closely. Discharge creatinine on 12/06/2020 at was 1.12. (5) Elevated troponin: Code(s): R77.8 - Other specified abnormalities of plasma proteins Status: Acute Assessment and Plan: Mild elevation, flat without anginal symptoms with minimal nonobstructive CAD consistent with a type 2 infarction not acute coronary syndrome in setting decompensated heart failure, acute renal failure and underlying anemia with hypoxic respiratory failure presentation. No indication for ischemic evaluation. (6) Paroxysmal atrial fibrillation: Code(s): I48.0 - Paroxysmal atrial fibrillation Status: Acute Assessment and Plan: Postoperative atrial fibrillation, complete heart block status post [employer] dual chamber pacemaker. Patient is currently ventricular paced. Not on anticoagulation due to retroperitoneal hematoma at outside hospital. (7) Altered mental status: Code(s): R41.82 - Altered mental status, unspecified Status: Acute Assessment and Plan: Improving, but pt remains confused. Management per primary service. (8) Anemia: Code(s): D64.9 - Anemia, unspecified Status: Acute Assessment and Plan: Stable. Monitor H&H. (9) Status post placement of cardiac pacemaker: Code(s): Z95.0 - Presence of cardiac pacemaker Status: Acute Assessment and Plan: Normal functioning device, generally AV paced. Subjective Date/time seen: Date of service: 01/08/21 14:27 Follow-up for edema, altered mental status, shortness of breath found to be in acute renal failure patient remains confused. Appetite marginal. Briefly wore BiPAP overnight but refused thereafter. Patient states she wore it throughout the night. She denies shortness of breath or chest pain. No new issues overnight. at bedside. He is concerned about her developing constipation once again. Review of Systems Review of Systems: All systems reviewed & are unremarkable except as noted in HPI and below ROS unobtainable: Yes unobtainable due to mental status Constitutional: Constitutional: Reports as per HPI, Reports no additional constitutional complaints and Reports fatigue Eyes: Eyes: Reports as per HPI and Reports no additional eye complaints ENT: Report
--- NOTE | 2021-01-08 15:53 | PM.PNNEP ---
Progress Note: A&P Assessment and Plan (1) ISMAEL (acute kidney injury): Code(s): N17.9 - Acute kidney failure, unspecified Status: Acute Assessment and Plan: creatinine was normal on discharge from [facility] ~ a month ago unclear as to what precipitated ISMAEL/ARF was on diuretic therapy prior to admission concern would be pre-renal factors from poor oral intake -- however, she has evidence of volume overload on admission perhaps she is intravascularly deplete despite outward signs of volume overload -- perhaps her volume status is more of a manifestation of 3rd spacing of fluid due to decreased mobility and deconditioning from recent hospital stay(?) follow repeat labs and UOP (2) Respiratory failure with hypoxia and hypercapnia: Code(s): J96.91 - Respiratory failure, unspecified with hypoxia; J96.92 - Respiratory failure, unspecified with hypercapnia Status: Acute Assessment and Plan: as evidence by exam/labs on admission Pulmonary following continue current therapy (3) CHF (congestive heart failure): Code(s): I50.9 - Heart failure, unspecified Status: Acute Assessment and Plan: did not do well with diuretic trial started on IV albumin chased by IV bumex to see if we can diuresis while maintaining stable BP and preventing further decline in kidney function other alternatives to consider is possibly a diuretic gtt but I would first see she responds with IV albumin + IV bumex (4) Altered mental status: Code(s): R41.82 - Altered mental status, unspecified Status: Acute Assessment and Plan: follow mentation underlying dementia(?) (5) Anemia: Code(s): D64.9 - Anemia, unspecified Status: Acute Assessment and Plan: probably due to acute issues and recent hospitalization follow H/H Will continue to follow. Subjective Date/time seen: 01/08/21 15:53 Mental status continues to wax and wane; not really compliant with wearing BiPAP (she forcible removes it apparently); reasonably urine output with IV albumin and IV bumex. Exam Narrative: Exam Narrative: General: WD/WN female in NAD Heart: normal S1 and S2; no rub Lungs: decreased breath sounds and bibasilar crackles Abdomen: soft, nontender, nondistended, positive bowel sounds Extremities: no cyanosis or clubbing; 1+ edema Skin: warm and dry Objective Data Vital Signs Vital Signs: Vital Signs Temp Pulse Resp BP Pulse Ox 01/08/21 14:00 80 01/08/21 12:00 80 94 01/08/21 11:56 36.5 C 80 20 115/54 L 96 01/08/21 10:00 80 01/08/21 09:33 84 L 01/08/21 09:30 97 01/08/21 08:12 80 01/08/21 08:00 36.1 C L 80 18 125/63 92 01/08/21 06:00 80 01/08/21 04:00 37.0 C 80 16 113/65 100 01/08/21 02:00 80 01/08/21 00:00 36.9 C 80 16 100/58 L 100 01/07/21 22:00 79 01/07/21 20:16 73 01/07/21 20:00 80 97 01/07/21 19:36 36.9 C 80 16 99/60 L 94 01/07/21 18:00 80 Intake/Output Intake/Output: Intake & Output 01/05/21 01/06/21 01/07/21 01/08/21 23:59 23:59 23:59 23:59 Intake Total 540 2090 840 Output Total 1450 1050 1400 Balance -910 1040 -560 Meds/Results Medications: Active Medications Generic Name Dose Route Start Last Admin Trade Name Kyle PRN Reason Stop Dose Admin Aspirin 81 mg 01/06/21 09:00 01/08/21 08:12 Aspirin 81 Mg Enteric Tablet PO 81 mg DAILY RAGHAV Administration Atorvastatin Calcium 20 mg 01/06/21 09:00 01/08/21 08:12 Atorvastatin 20 Mg Tablet PO 20 mg DAILY RAGHAV Administration Bumetanide 1 mg 01/07/21 17:15 01/08/21 13:22 Bumetanide Inj 1 Mg/4 Ml Vial IV PUSH 01/09/21 17:01 1 mg TID RAGHAV Administration Docusate Sodium 100 mg 01/06/21 09:00 01/08/21 08:12 Docusate Sodium 100 Mg Capsule PO 100 mg DAILY RAGHAV Administration Enoxaparin Sodium 30 mg 01/06/21 09:00 01/08/21 08:12 Enoxapar
--- NOTE | 2021-01-08 15:53 | P.PNNP_ITS ---
Progress Note: A&P Assessment and Plan (1) ISMAEL (acute kidney injury): Code(s): N17.9 - Acute kidney failure, unspecified Status: Acute Assessment and Plan: * creatinine was normal on discharge from [facility] ~ a month ago * unclear as to what precipitated ISMAEL/ARF * was on diuretic therapy prior to admission * concern would be pre-renal factors from poor oral intake -- however, she has evidence of volume overload on admission * perhaps she is intravascularly deplete despite outward signs of volume ov erload -- perhaps her volume status is more of a manifestation of 3rd spacing of fluid due to decreased mobility and deconditioning from recent hospital stay(?) * follow repeat labs and UOP (2) Respiratory failure with hypoxia and hypercapnia: Code(s): J96.91 - Respiratory failure, unspecified with hypoxia; J96.92 - Respiratory failure, unspecified with hypercapnia Status: Acute Assessment and Plan: * as evidence by exam/labs on admission * Pulmonary following * continue current therapy (3) CHF (congestive heart failure): Code(s): I50.9 - Heart failure, unspecified Status: Acute Assessment and Plan: * did not do well with diuretic trial * started on IV albumin chased by IV bumex to see if we can diuresis while maintaining stable BP and preventing further decline in kidney function * other alternatives to consider is possibly a diuretic gtt but I would first see she responds with IV albumin + IV bumex (4) Altered mental status: Code(s): R41.82 - Altered mental status, unspecified Status: Acute Assessment and Plan: * follow mentation * underlying dementia(?) (5) Anemia: Code(s): D64.9 - Anemia, unspecified Status: Acute Assessment and Plan: * probably due to acute issues and recent hospitalization * follow H/H Will continue to follow. Subjective Date/time seen: 01/08/21 15:53 Mental status continues to wax and wane; not really compliant with wearing BiPAP (she forcible removes it apparently); reasonably urine output with IV albumin and IV bumex. Exam Narrative: Exam Narrative: General: WD/WN female in NAD Heart: normal S1 and S2; no rub Lungs: decreased breath sounds and bibasilar crackles Abdomen: soft, nontender, nondistended, positive bowel sounds Extremities: no cyanosis or clubbing; 1+ edema Skin: warm and dry Objective Data Vital Signs Vital Signs: Vital Signs Temp Pulse Resp BP Pulse Ox 01/08/21 14:00 80 01/08/21 12:00 80 94 01/08/21 11:56 36.5 C 80 20 115/54 L 96 01/08/21 10:00 80 01/08/21 09:33 84 L 01/08/21 09:30 97 01/08/21 08:12 80 01/08/21 08:00 36.1 C L 80 18 125/63 92 01/08/21 06:00 80 01/08/21 04:00 37.0 C 80 16 113/65 100 01/08/21 02:00 80 01/08/21 00:00 36.9 C 80 16 100/58 L 100 01/07/21 22:00 79 01/07/21 20:16 73 01/07/21 20:00 80 97 01/07/21 19:36 36.9 C 80 16 99/60 L 94 01/07/21 18:00 80 Intake/Output Intake/Output: Intake & Output 01/05/21 01/06/21 01/07/21 01/08/21 23:59 23:59 23:59 23:59 Intake Total 540 2090 840 Output Total 1450 1050 1400 Balance -910 1040 -560
--- NOTE | 2021-01-08 16:11 | PM.IMPN ---
Progress Note: A&P Assessment and Plan (1) Acute on chronic respiratory failure with hypoxia and hypercapnia: Code(s): J96.21 - Acute and chronic respiratory failure with hypoxia; J96.22 - Acute and chronic respiratory failure with hypercapnia Status: Acute Assessment and Plan: Admit to telemetry unit Continues BiPAP ABG reviewed Chest x-ray reviewed Likely secondary to fluid overload Diuresing Gillis in Daily weight Daily intake and output Cardiology consult 01/08/21 16:11 Chief Complaint: Shortness of breath Narrative: This is a 80-year-old female with past medical history significant for severe mitral regurgitation, patient cyst is status post mitral valve repair. She presented to the emergency room through EMS due to shortness of breath upon arrival to emergency room patient was found to have a saturation of 75% and require BiPAP and ABG showed CO2 retention. Patient is unable to give any history as she was obtunded and at the time of my visit she was on BiPAP and still confused. She had elevated brain natriuretic peptide, elevated troponin and chest x-ray with significant for lung infiltrates. Decision was made to admit patient to telemetry unit for further management evaluation and treatment. 01/06 patient is 80-year-old female presented emergency department with hypoxia and high hypercapnic respiratory failure currently on BiPAP unable to provide any review of symptom. patient is seen pulmonology suspect cardiac issues patient seen by cardiology and further recommendation to follow. 01/07 patient with shortness of breath patient is seen by Cardiology and pulmonology and they both agree most likely secondary to volume overload and 3rd spacing patient is being diurese, recent cardiac echo showed mild reduction in systolic dysfunction with ejection fraction of 55%, grade 2 diastolic dysfunction, most likely patient acute on chronic diastolic dysfunction her symptoms are improving and currently patient is off BiPAP on nasal cannula, unfortunately patient is unable to provide any review of symptom most likely secondary to dementia, will continue to monitor once clinically stable will have a PT OT evaluate the patient and further recommendation to follow. 01/08 patient clinical symptoms improving slightly more awake seen by pulmonology patient is not very compliant with her BiPAP, patient is being diuresed with IV Bumex her creatinine is slightly improving will continue PT OT, will continue to monitor once clinically stable patient will benefit from acute rehab (2) CHF (congestive heart failure): Code(s): I50.9 - Heart failure, unspecified Status: Acute Assessment and Plan: Fluid overload (3) Elevated troponin: Code(s): R77.8 - Other specified abnormalities of plasma proteins Status: Acute Assessment and Plan: Nonischemic myocardial injury No new EKG changes Patient with recent left and right heart catheterization back in September Continue to monitor (4) Mitral valve regurgitation: Code(s): I34.0 - Nonrheumatic mitral (valve) insufficiency Status: Acute Assessment and Plan: A status post repair (5) Acute renal insufficiency: Code(s): N28.9 - Disorder of kidney and ureter, unspecified Status: Acute Assessment and Plan: Patient will has been on diuretics metolazone and Lasix Patient also with recent mitral valve repair Renal ultrasound Avoid nephrotoxin Nephrology consult Subjective Date/time seen: 01/08/21 16:11 Chief Complaint: Shortness of breath Narrative: This is a 80-year-old female with past medical history significant for severe mitral regurgitation, patient cyst is status post mitral valve repair. She presented to the emergency room through EMS due to shortness of breath upon arrival to emergency room patient was found to have a saturation of 75% and require BiPAP and ABG showed CO2 retention. Patient is unable to give an
[2021-01-08] MEDS: QUEtiapine FUMARATE 25 MG TABLET 50 MG PO (20:27)
--- NOTE | 2021-01-08 22:13 | PC.NURSE ---
patient is refusing to wear bipap. she is constantly removing it. as soon as it is clipped on and stating that : I don't want to wear it , guero queen ma is aware of situation. no orders except to call family at this time.
--- NOTE | 2021-01-08 22:42 | PCDIET ---
placed patient back on bipap after informing her spouse of the situation. staff is sitting with patient trying to keep it on her.
[2021-01-09] VITALS (15 sets, daily range): BP systolic 105–122; BP diastolic 55–68; PULSE 78–83; RESP 16–24; TEMP 35.7–36.6; O2SAT 91–100
--- NOTE | 2021-01-09 00:37 | PC.NURSE ---
patient crying and begging for bipap to be off. took off at 0030 to give patient a break. will try again later.
[2021-01-09 05:27] LABS: Hematocrit 28.4 % (37.0-47.0); Hemoglobin 7.7 g/dL (12.0-15.0); Mean Corpuscular HGB Conc 27.1 g/dl (32-36); Mean Corpuscular Hemoglobin 21.7 pg (26-34); Mean Platelet Volume 9.4 fl (7.4-10.4); Platelet Count Result 220 k/mm3 (150-375); Red Blood Count 3.55 M/mm3 (4.2-5.4); Red Cell Distribution Width 19.6 % (11.5-14.5)
[2021-01-09 05:41] LABS: Albumin Level 3.3 g/dL (3.5-5.1); Blood Urea Nitrogen 71 mg/dL (7-17); Calcium 9.1 mg/dL (8.4-10.2); Carbon Dioxide > 40 mmol/L (22-30); Chloride 83 mmol/L (98-107); Estimated CRCL calculation 23 ml/min; Estimated Glomerular Filt Rate 24; Glucose 134 mg/dL (65-105); Phosphorus 4.1 mg/dL (2.5-4.5); Potassium 3.6 mmol/L (3.4-5.0); Sodium 133 mmol/L (137-145)
[2021-01-09] MEDS: METOPROLOL TARTRATE 25 MG TABLET PO ×2 (08:17→20:52)
[2021-01-09] MEDS: PSYLLIUM POWDER PACKET 1 PACKET PO (08:17)
[2021-01-09] MEDS: ENOXAPARIN 30 MG/0.3 ML SYRINGE SUB-Q (08:17)
[2021-01-09] MEDS: ALBUMIN HUMAN 25% 12.5 GM/50ML 50 ML IVPB ×3 (08:18→17:35)
[2021-01-09] MEDS: ASPIRIN 81 MG ENTERIC TABLET PO (08:18)
[2021-01-09] MEDS: ATORVASTATIN 20 MG TABLET PO (08:18)
[2021-01-09] MEDS: DOCUSATE SODIUM 100 MG CAPSULE PO (08:18)
[2021-01-09] MEDS: BUMETANIDE INJ 1 MG/4 ML VIAL IV PUSH ×3 (09:03→18:38)
--- NOTE | 2021-01-09 09:13 | P.PNPL_ITS ---
Progress Note: A&P Assessment and Plan (1) Respiratory failure with hypoxia and hypercapnia: Code(s): J96.91 - Respiratory failure, unspecified with hypoxia; J96.92 - Respiratory failure, unspecified with hypercapnia Status: Acute Assessment and Plan: Patient has chronic hypercarbic respiratory failure with an initial blood gas of 7.37/69/107 on 4 L nasal cannula and a serum bicarbonate level of greater than 40. I have reviewed past serum bicarbonate levels on 08/31/2020 her serum bicarbonate level was 31, on 09/14/2020 her serum bicarbonate level was 30. Echo without RV or RA changes with PASP 33. Patient has no history of smoking and no exposure to secondhand smoke. She has no emphysema on her CT angiogram of the chest on 08/16/2020. I do not think she has COPD. No history of asthma symptoms. I see no evidence of interstial lung disease or infection at this time. tells me she had no lung disease in the past. the Cardiology consult noted that the patient had a right thoracentesis on 11/20/20 of 120 mL and this effusion was determined to be transudative. Current etiologies of her chronic hypercarbic respiratory failure include fluid overload with congestion and bilateral pleural effusions, status post median sternotomy on 10/09/2020 which can result in decreased lung function for 3-6 months, possible obesity hypoventilation syndrome and possible sleep apnea. 01/06 At this time I agree with as aggressive diuresis as tolerated by cardiac and renal systems (Cr 2.7 and now 2.5) for her fluid overload by cardiology and hospitalist. She does not need acetazolamide as she is not alkalotic at this time and I agree with DC. Check CXR in morning. I will continue nocturnal noninvasive ventilation tonight while she is being diureses. Pressure were high on BiPAP and I will place on AVAPS RR 20, TV 500, EPAP 5, Min I PAP 6, MAx IPAP 25, 30% tonight and check a ABG in the morning. Will reassess hypercarbia without noninvasive after diuresis and if no improvement will consider thoricentesis to optimize pulmonary status. 01/07 Patient wore her AVAPS mode with a rate of 20, tidal volume 500, EPAP 5, minimal inspiratory pressure 6, maximal inspiratory pressure 25, 30% FiO2 overnight. Patient had a good arterial blood gas at the end of the night with a pH of 7.42 /72/82 on the current settings. Patient is currently on 3 L nasal cannula with saturations 100%, goal saturations 90-94%. Patient denies any fever, chills, rest shortness of breath at this time. Patient does state she has a cough. Cr 2.30. CXR with worsening congestion. Afebrile, no phelgm production, and WBC 7.6K. I do not think she has pneumonia eric gree with no antibiotics currently. Diuresis per cardiology, nephrology and hospitalist teams. 01/08 Patient tells me that she wore her noninvasive ventilation last night but the nursing staff says maybe she wore it for less than an hour and then refused it. I asked the patient if it was painful or it was uncomfortable breathing and she says no. It should be noted that the patient remains confused with tangential and irrelevant answers to some questions. She is comfortable on 2 L nasal cannula saturations 92. I am concerned that patient has altered mental status -delirium will make implementing home noninvasive ventilation difficult. I will try AVAPS mode again tonight and see if she will agree to wear it. 01/09 Patient was unable to tolerate the BiPAP mask. Patient continued to tear the mask off at night and refused to put it back on. Although she would benefit from noninvasive ventilation she will not tolerate it. I spoke with the Emmanuel today and patient was discharged from the operation on 10/08 and jeff
--- NOTE | 2021-01-09 10:52 | PM.PNCARD ---
Progress Note: A&P Assessment and Plan (1) Acute on chronic respiratory failure with hypoxia and hypercapnia: Code(s): J96.21 - Acute and chronic respiratory failure with hypoxia; J96.22 - Acute and chronic respiratory failure with hypercapnia Status: Acute Assessment and Plan: Complicated clinical picture. Echo reveals improvement in EF 55% (up from 35%) and durable MVR without MR. Hypoventilation but pt noncompliant with BiPAP so discontinued. Pulm following. Overall prognosis is guarded. (2) Status post mitral valve replacement: Code(s): Z95.2 - Presence of prosthetic heart valve Status: Acute Assessment and Plan: Prophylactic antibiotics prior to surgical procedures. 2D echo reveals normal functioning mitral valve with no regurgitation. EF has improved from 35-40% now 55%. (3) CHF (congestive heart failure): Code(s): I50.9 - Heart failure, unspecified Status: Acute Assessment and Plan: As above. Suspect much of her peripheral edema is secondary to third spacing and malnutrition, deconditioning. -Not much response to Albumin and IV Bumex clinically. (4) ISMAEL (acute kidney injury): Code(s): N17.9 - Acute kidney failure, unspecified Status: Acute Assessment and Plan: Nephrology consultation appreciated. Monitor function, slowly improving. Discharge creatinine on 12/06/2020 at was 1.12. (5) Elevated troponin: Code(s): R77.8 - Other specified abnormalities of plasma proteins Status: Acute Assessment and Plan: Mild elevation, flat without anginal symptoms with minimal nonobstructive CAD consistent with a type 2 infarction not acute coronary syndrome in setting decompensated heart failure, acute renal failure and underlying anemia with hypoxic respiratory failure presentation. No indication for ischemic evaluation. (6) Paroxysmal atrial fibrillation: Code(s): I48.0 - Paroxysmal atrial fibrillation Status: Acute Assessment and Plan: Postoperative atrial fibrillation, complete heart block status post [employer] dual chamber pacemaker. Patient is currently ventricular paced. Not on anticoagulation due to retroperitoneal hematoma at outside hospital. (7) Altered mental status: Code(s): R41.82 - Altered mental status, unspecified Status: Acute Assessment and Plan: Less alert today. Nutritional status remains an issue. Management per primary service. (8) Anemia: Code(s): D64.9 - Anemia, unspecified Status: Acute Assessment and Plan: Stable. Monitor H&H. (9) Status post placement of cardiac pacemaker: Code(s): Z95.0 - Presence of cardiac pacemaker Status: Acute Assessment and Plan: Normal functioning device, generally AV paced. Subjective Date/time seen: Date of service: 01/09/21 10:52 Follow-up for edema, history of CHF, pacemaker, status post mitral valve replacement patient remains confused, more so overnight and today. Non compliant with BiPAP once again overnight. Electronic paced rhythm on telemetry. Patient not responding to questions, eyes slightly open reacting to verbal stimuli but not following commands. No distress, appears comfortable with sitter at bedside who states pt has been calm. Review of Systems Review of Systems: All systems reviewed & are unremarkable except as noted in HPI and below ROS unobtainable: Yes unobtainable due to medical condition and unobtainable due to mental status Constitutional: Constitutional: Reports as per HPI and Reports no additional constitutional complaints Eyes: Eyes: Reports as per HPI and Reports no additional eye complaints ENT: Reports system reviewed and no additional complaints, except as documented and Reports as per HPI Cardiovascular: Cardiovascular: Reports as per HPI, Reports no additional cardiovascular complaints, Reports chest pain, Reports palpitations, Reports dyspnea an
[2021-01-09 11:09] LABS: Free T4 Free Thyroxine 0.98 ng/mL (0.78-2.19)
[2021-01-09 11:53] LABS: Glucose Point of Care 152 mg/dl (65-105)
--- NOTE | 2021-01-09 16:12 | PM.IMPN ---
Progress Note: A&P Assessment and Plan (1) Acute on chronic respiratory failure with hypoxia and hypercapnia: Code(s): J96.21 - Acute and chronic respiratory failure with hypoxia; J96.22 - Acute and chronic respiratory failure with hypercapnia Status: Acute Assessment and Plan: BIPAP started. ABG with co2 retention noted BNP and elevated troponin wtih cxr with lung infiltrates. Likely secondary to fluid overload Diuresing Gillis in Daily weight Daily intake and output Cardiology consult pulmonary consulted and following as well. patient not compliantw ith her BIPAP. diuresis to continue with bumex tid along with albumin infusion. (2) CHF (congestive heart failure): Code(s): I50.9 - Heart failure, unspecified Status: Acute Assessment and Plan: Fluid overload ongoing diureiss. anasarca noted. along with IV albumin attempted Nephrology on board for diuresis may attempt a dose of metolazone await Nephrology recommendations I and O monitored (3) Elevated troponin: Code(s): R77.8 - Other specified abnormalities of plasma proteins Status: Acute Assessment and Plan: Nonischemic myocardial injury No new EKG changes Patient with recent left and right heart catheterization back in September Continue to monitor (4) Mitral valve regurgitation: Code(s): I34.0 - Nonrheumatic mitral (valve) insufficiency Status: Acute Assessment and Plan: status post repair in [place] [facility] past (5) Acute renal insufficiency: Code(s): N28.9 - Disorder of kidney and ureter, unspecified Status: Acute Assessment and Plan: Patient will has been on diuretics metolazone and Lasix Patient also with recent mitral valve repair Renal ultrasound with no hydronephrosis Avoid nephrotoxin Nephrology consult (6) Status post placement of cardiac pacemaker: Code(s): Z95.0 - Presence of cardiac pacemaker Status: Acute (7) Altered mental status: Code(s): R41.82 - Altered mental status, unspecified Status: Acute Assessment and Plan: check CT head to rule out any intracranial abnormality (8) Paroxysmal atrial fibrillation: Code(s): I48.0 - Paroxysmal atrial fibrillation Status: Acute (9) Status post mitral valve replacement: Code(s): Z95.2 - Presence of prosthetic heart valve Status: Acute (10) Anemia: Code(s): D64.9 - Anemia, unspecified Status: Acute (11) CAD (coronary artery disease): Code(s): I25.10 - Atherosclerotic heart disease of [place] coronary artery without angina pectoris Status: Acute Subjective Date/time seen: 01/09/21 16:12 Interval history: patient confused which is house he has been since admission per nursing staff. Mario has been pulling off BiPAP overnight and has had sitter since last night Review of Systems Review of Systems: ROS unobtainable: Yes unobtainable due to medical condition (Altered mental status confusion and respiratory failure) Exam Narrative: Exam Narrative: Patient is comfortable, confused HEENT: eyes are clear and none icteric LUNGS: bilateral fair air entry with rales and rhonchi ABD: obese distended, non tnder Lower extremities: lower extermity edema noted all over, anasarca SKIN: nonjaundiced Neuro: dementia. confused, alert and conversant, however not oritened to time, place. oriented to person. Objective Data Vital Signs Vital Signs: Vital Signs - 24 hr 01/08/21 16:24 01/08/21 18:00 01/08/21 19:59 Temperature 97 F L 97.8 F Pulse Rate 80 80 80 Respiratory Rate 24 H 20 Blood Pressure 124/53 L 120/59 L Pulse Oximetry 96 99 01/08/21 20:00 01/08/21 20:27 01/08/21 21:15 Temperature Pulse Rate 81 80 80 Respiratory Rate 20 Blood Pressure Pulse Oximetry 99 86 L 01/08/21 21:20 01/08/21 22:00 01/08/21 23:14 Temperature 97.6 F Pulse Rate 80 80 80 Respiratory Rate 21 H 20 Blood Pressure 96/53 L Pulse O
--- NOTE | 2021-01-09 16:28 | P.PNNP_ITS ---
Progress Note: A&P Assessment and Plan (1) ISMAEL (acute kidney injury): Code(s): N17.9 - Acute kidney failure, unspecified Status: Acute Assessment and Plan: * creatinine was normal on discharge from [facility] ~ a month ago * unclear as to what precipitated ISMAEL/ARF * was on diuretic therapy prior to admission * concern would be pre-renal factors from poor oral intake -- however, she has evidence of volume overload on admission * perhaps she is intravascularly deplete despite outward signs of volume ov erload -- perhaps her volume status is more of a manifestation of 3rd spacing of fluid due to decreased mobility and deconditioning from recent hospital stay(?) * follow repeat labs and UOP (2) Respiratory failure with hypoxia and hypercapnia: Code(s): J96.91 - Respiratory failure, unspecified with hypoxia; J96.92 - Respiratory failure, unspecified with hypercapnia Status: Acute Assessment and Plan: * as evidence by exam/labs on admission * Pulmonary following * continue current therapy (3) CHF (congestive heart failure): Code(s): I50.9 - Heart failure, unspecified Status: Acute Assessment and Plan: * did not do well with diuretic trial on admission * started on IV albumin chased by IV bumex for several doses to see if we can diuresis while maintaining stable BP and preventing further decline in kidney function * other alternatives to consider is possibly a diuretic gtt but I would first see she responds with IV albumin + IV bumex (4) Altered mental status: Code(s): R41.82 - Altered mental status, unspecified Status: Acute Assessment and Plan: * follow mentation * underlying dementia(?) (5) Anemia: Code(s): D64.9 - Anemia, unspecified Status: Acute Assessment and Plan: * probably due to acute issues and recent hospitalization * follow H/H Will continue to follow. Subjective Date/time seen: 01/09/21 16:28 Confusion continues to be more of an issue at this time; suboptimal diuresis in the last 24 hours; surprisingly, creatinine is actually somewhat better in comparison to admission value. Exam Narrative: Exam Narrative: General: WD/WN female in NAD but confused Heart: normal S1 and S2; no rub Lungs: decreased breath sounds and bibasilar crackles Abdomen: soft, nontender, nondistended, positive bowel sounds Extremities: no cyanosis or clubbing; 1+ edema Skin: warm and intact Objective Data Vital Signs Vital Signs: Vital Signs Temp Pulse Resp BP Pulse Ox 01/09/21 16:00 80 01/09/21 12:00 36.2 C L 80 24 H 119/55 L 97 01/09/21 10:00 80 01/09/21 08:17 80 01/09/21 08:00 35.7 C L 80 16 118/63 100 01/09/21 06:00 80 01/09/21 04:00 36.6 C 80 20 105/68 94 Intake/Output Intake/Output: Intake & Output 01/06/21 01/07/21 01/08/21 01/09/21 23:59 23:59 23:59 23:59 Intake Total 540 2090 890 610 Output Total 1450 1050 1400 2050 Balance -910 1040 -510 -1440 Meds/Results Medications: Active Medications Generic Name Dose Route Start Last Admin Trade Name Freq PRN Reason Stop Dose Admin Aspirin 81 mg 01/06/21 09:00 01/09/21 08:18 Aspirin 81 Mg Enteric Tablet PO 81 mg DAILY RAGHAV
--- NOTE | 2021-01-09 16:28 | PM.PNNEP ---
Progress Note: A&P Assessment and Plan (1) ISMAEL (acute kidney injury): Code(s): N17.9 - Acute kidney failure, unspecified Status: Acute Assessment and Plan: creatinine was normal on discharge from [facility] ~ a month ago unclear as to what precipitated ISMAEL/ARF was on diuretic therapy prior to admission concern would be pre-renal factors from poor oral intake -- however, she has evidence of volume overload on admission perhaps she is intravascularly deplete despite outward signs of volume overload -- perhaps her volume status is more of a manifestation of 3rd spacing of fluid due to decreased mobility and deconditioning from recent hospital stay(?) follow repeat labs and UOP (2) Respiratory failure with hypoxia and hypercapnia: Code(s): J96.91 - Respiratory failure, unspecified with hypoxia; J96.92 - Respiratory failure, unspecified with hypercapnia Status: Acute Assessment and Plan: as evidence by exam/labs on admission Pulmonary following continue current therapy (3) CHF (congestive heart failure): Code(s): I50.9 - Heart failure, unspecified Status: Acute Assessment and Plan: did not do well with diuretic trial on admission started on IV albumin chased by IV bumex for several doses to see if we can diuresis while maintaining stable BP and preventing further decline in kidney function other alternatives to consider is possibly a diuretic gtt but I would first see she responds with IV albumin + IV bumex (4) Altered mental status: Code(s): R41.82 - Altered mental status, unspecified Status: Acute Assessment and Plan: follow mentation underlying dementia(?) (5) Anemia: Code(s): D64.9 - Anemia, unspecified Status: Acute Assessment and Plan: probably due to acute issues and recent hospitalization follow H/H Will continue to follow. Subjective Date/time seen: 01/09/21 16:28 Confusion continues to be more of an issue at this time; suboptimal diuresis in the last 24 hours; surprisingly, creatinine is actually somewhat better in comparison to admission value. Exam Narrative: Exam Narrative: General: WD/WN female in NAD but confused Heart: normal S1 and S2; no rub Lungs: decreased breath sounds and bibasilar crackles Abdomen: soft, nontender, nondistended, positive bowel sounds Extremities: no cyanosis or clubbing; 1+ edema Skin: warm and intact Objective Data Vital Signs Vital Signs: Vital Signs Temp Pulse Resp BP Pulse Ox 01/09/21 16:00 80 01/09/21 12:00 36.2 C L 80 24 H 119/55 L 97 01/09/21 10:00 80 01/09/21 08:17 80 01/09/21 08:00 35.7 C L 80 16 118/63 100 01/09/21 06:00 80 01/09/21 04:00 36.6 C 80 20 105/68 94 Intake/Output Intake/Output: Intake & Output 01/06/21 01/07/21 01/08/21 01/09/21 23:59 23:59 23:59 23:59 Intake Total 540 2090 890 610 Output Total 1450 1050 1400 2050 Balance -910 1040 510 1440 Meds/Results Medications: Active Medications Generic Name Dose Route Start Last Admin Trade Name Freq PRN Reason Stop Dose Admin Aspirin 81 mg 01/06/21 09:00 01/09/21 08:18 Aspirin 81 Mg Enteric Tablet PO 81 mg DAILY RAGHAV Administration Atorvastatin Calcium 20 mg 01/06/21 09:00 01/09/21 08:18 Atorvastatin 20 Mg Tablet PO 20 mg DAILY RAGHAV Administration Docusate Sodium 100 mg 01/06/21 09:00 01/09/21 08:18 Docusate Sodium 100 Mg Capsule PO 100 mg DAILY RAGAHV Administration Enoxaparin Sodium 30 mg 01/06/21 09:00 01/09/21 08:17 Enoxaparin 30 Mg/0.3 Ml Syringe SUB-Q 30 mg DAILY RAGHAV Administration Metoprolol Tartrate 25 mg 01/06/21 09:00 01/09/21 20:52 Metoprolol Tartrate 25 Mg Tablet PO 25 mg Q12HR RAGHAV Administration Psyllium Hydrophilic Mucilloid 1 packet 01/06/21 09:00 01/09/21 08:17 Psyllium Powder Packet PO 02/05/21 09:01 1 packet DAILY RAGHAV Administration
[2021-01-09] MEDS: QUEtiapine FUMARATE 25 MG TABLET 50 MG PO (20:53)
[2021-01-10] VITALS (14 sets, daily range): BP systolic 117–138; BP diastolic 53–92; PULSE 77–105; RESP 20–24; TEMP 36.2–36.7; O2SAT 48–100
--- NOTE | 2021-01-10 03:53 | PC.NURSE ---
patient is upset and telling us that she wants to . she said that she does not deserve to live. she wants us to kill her and remove her neck. patient is not making sense most of the time.
--- NOTE | 2021-01-10 04:16 | PC.NURSE ---
patient stating that her neck is removable and wants it to be removed.
[2021-01-10 06:31] LABS: Hematocrit 28.6 % (37.0-47.0); Hemoglobin 7.9 g/dL (12.0-15.0); Mean Corpuscular HGB Conc 27.6 g/dl (32-36); Mean Corpuscular Hemoglobin 21.5 pg (26-34); Mean Corpuscular Volume 77.9 fl (80-100); Mean Platelet Volume 9.6 fl (7.4-10.4); Platelet Count Result 233 k/mm3 (150-375); Red Blood Count 3.67 M/mm3 (4.2-5.4); Red Cell Distribution Width 19.5 % (11.5-14.5); White Blood Count 8.1 K/mm3 (4.5-10.0)
[2021-01-10 07:11] LABS: Albumin Level 3.5 g/dL (3.5-5.1); Blood Urea Nitrogen 59 mg/dL (7-17); Calcium 9.3 mg/dL (8.4-10.2); Carbon Dioxide > 40 mmol/L (22-30); Chloride 81 mmol/L (98-107); Estimated CRCL calculation 26 ml/min; Estimated Glomerular Filt Rate 27; Glucose 123 mg/dL (65-105); Magnesium 2.7 mg/dL (1.6-2.3); Phosphorus 3.7 mg/dL (2.5-4.5); Potassium 3.2 mmol/L (3.4-5.0); Sodium 134 mmol/L (137-145)
[2021-01-10] MEDS: PSYLLIUM POWDER PACKET 1 PACKET PO (07:58)
[2021-01-10] MEDS: ATORVASTATIN 20 MG TABLET PO (07:58)
[2021-01-10] MEDS: DOCUSATE SODIUM 100 MG CAPSULE PO (07:58)
[2021-01-10] MEDS: ASPIRIN 81 MG ENTERIC TABLET PO (07:58)
[2021-01-10] MEDS: METOPROLOL TARTRATE 25 MG TABLET PO ×2 (07:58→21:19)
[2021-01-10] MEDS: ENOXAPARIN 30 MG/0.3 ML SYRINGE SUB-Q (07:58)
--- NOTE | 2021-01-10 09:42 | PM.PNPUL ---
Progress Note: A&P Assessment and Plan (1) Respiratory failure with hypoxia and hypercapnia: Code(s): J96.91 - Respiratory failure, unspecified with hypoxia; J96.92 - Respiratory failure, unspecified with hypercapnia Status: Acute Assessment and Plan: Patient has chronic hypercarbic respiratory failure with an initial blood gas of 7.37/69/107 on 4 L nasal cannula and a serum bicarbonate level of greater than 40. I have reviewed past serum bicarbonate levels on 08/31/2020 her serum bicarbonate level was 31, on 09/14/2020 her serum bicarbonate level was 30. Echo without RV or RA changes with PASP 33. Patient has no history of smoking and no exposure to secondhand smoke. She has no emphysema on her CT angiogram of the chest on 08/16/2020. I do not think she has COPD. No history of asthma symptoms. I see no evidence of interstial lung disease or infection at this time. tells me she had no lung disease in the past. the Cardiology consult noted that the patient had a right thoracentesis on 11/20/20 of 120 mL and this effusion was determined to be transudative. Current etiologies of her chronic hypercarbic respiratory failure include fluid overload with congestion and bilateral pleural effusions, status post median sternotomy on 10/09/2020 which can result in decreased lung function for 3-6 months, possible obesity hypoventilation syndrome and possible sleep apnea. 01/06 At this time I agree with as aggressive diuresis as tolerated by cardiac and renal systems (Cr 2.7 and now 2.5) for her fluid overload by cardiology and hospitalist. She does not need acetazolamide as she is not alkalotic at this time and I agree with DC. Check CXR in morning. I will continue nocturnal noninvasive ventilation tonight while she is being diureses. Pressure were high on BiPAP and I will place on AVAPS RR 20, TV 500, EPAP 5, Min I PAP 6, MAx IPAP 25, 30% tonight and check a ABG in the morning. Will reassess hypercarbia without noninvasive after diuresis and if no improvement will consider thoricentesis to optimize pulmonary status. 01/07 Patient wore her AVAPS mode with a rate of 20, tidal volume 500, EPAP 5, minimal inspiratory pressure 6, maximal inspiratory pressure 25, 30% FiO2 overnight. Patient had a good arterial blood gas at the end of the night with a pH of 7.42 /72/82 on the current settings. Patient is currently on 3 L nasal cannula with saturations 100%, goal saturations 90-94%. Patient denies any fever, chills, rest shortness of breath at this time. Patient does state she has a cough. Cr 2.30. CXR with worsening congestion. Afebrile, no phelgm production, and WBC 7.6K. I do not think she has pneumonia eric gree with no antibiotics currently. Diuresis per cardiology, nephrology and hospitalist teams. 01/08 Patient tells me that she wore her noninvasive ventilation last night but the nursing staff says maybe she wore it for less than an hour and then refused it. I asked the patient if it was painful or it was uncomfortable breathing and she says no. It should be noted that the patient remains confused with tangential and irrelevant answers to some questions. She is comfortable on 2 L nasal cannula saturations 92. I am concerned that patient has altered mental status -delirium will make implementing home noninvasive ventilation difficult. I will try AVAPS mode again tonight and see if she will agree to wear it. 01/09 Patient was unable to tolerate the BiPAP mask. Patient continued to tear the mask off at night and refused to put it back on. Although she would benefit from noninvasive ventilation she will not tolerate it. TSH 3.34 and FT4 0.98 I spoke with the Emmanuel today and patient was discharged from the operation on 10/08 and went home for 5-6 days and was good with a normal mental status. She then became confused on about post discharge day 6. With swelling and fell off a chair and went to [facility] and he was t
--- NOTE | 2021-01-10 10:39 | PCPTNOTE ---
Attempted to see patient for PT this morning, however patient unable to participate in therapy. Patient would open her eyes and look at therapist but would not respond or perform any activity. Per RN: patient was not waking up or responding to her prior to therapy attempting to work with patient.
--- NOTE | 2021-01-10 12:03 | P.PNNP_ITS ---
Progress Note: A&P Assessment and Plan (1) ISMAEL (acute kidney injury): Code(s): N17.9 - Acute kidney failure, unspecified Status: Acute Assessment and Plan: * creatinine was normal on discharge from [facility] ~ a month ago * unclear as to what precipitated ISMAEL/ARF * was on diuretic therapy prior to admission * concern would be pre-renal factors from poor oral intake -- however, she has evidence of volume overload on admission * perhaps she is intravascularly deplete despite outward signs of volume ov erload -- perhaps her volume status is more of a manifestation of 3rd spacing of fluid due to decreased mobility and deconditioning from recent hospital stay(?) * follow repeat labs and UOP (2) Respiratory failure with hypoxia and hypercapnia: Code(s): J96.91 - Respiratory failure, unspecified with hypoxia; J96.92 - Respiratory failure, unspecified with hypercapnia Status: Acute Assessment and Plan: * as evidence by exam/labs on admission * Pulmonary following * continue current therapy (3) CHF (congestive heart failure): Code(s): I50.9 - Heart failure, unspecified Status: Acute Assessment and Plan: * did not do well with diuretic trial on admission * on IV albumin chased by IV bumex for several doses to see if we can diuresis while maintaining stable BP and preventing further decline in kidney function (finishes today) * follow urine output (4) Altered mental status: Code(s): R41.82 - Altered mental status, unspecified Status: Acute Assessment and Plan: * follow mentation * underlying dementia(?) (5) Anemia: Code(s): D64.9 - Anemia, unspecified Status: Acute Assessment and Plan: * probably due to acute issues and recent hospitalization * follow H/H Will continue to follow. Subjective Date/time seen: 01/10/21 12:03 Remains intermittently confused with reasonably diuresis in the last 24 hours; not wearing BiPAP as apparently does not tolerate but respiratory status seems stable on oxygen by nasal cannula; no other acute events/issues overnight or earlier this AM. Exam Narrative: Exam Narrative: General: WD/WN female in NAD but confused Heart: normal S1 and S2; no rub Lungs: decreased breath sounds and bibasilar crackles Abdomen: soft, nontender, nondistended, positive bowel sounds Extremities: no cyanosis or clubbing; 1+ edema Skin: warm and intact Objective Data Vital Signs Vital Signs: Vital Signs Temp Pulse Resp BP Pulse Ox 01/10/21 08:00 36.7 C 80 22 H 138/92 H 99 01/10/21 07:58 80 01/10/21 04:45 36.4 C 81 20 117/60 95 01/10/21 04:11 79 20 96 01/10/21 04:00 80 01/10/21 02:00 77 01/10/21 00:00 83 01/09/21 23:16 83 96 01/09/21 22:30 80 97 01/09/21 21:05 78 97 01/09/21 20:52 80 01/09/21 20:00 36.4 C 80 20 118/57 L 96 01/09/21 16:58 36.3 C L 80 20 122/55 L 91 01/09/21 16:00 80 Intake/Output Intake/Output: Intake & Output 01/07/21 01/08/21 01/09/21 01/10/21 23:59 23:59 23:59 23:59 Intake Total 2090 890 610 100 Output Total 1050 1400 2050 750 Balance 7751 -778 -4141 -210 Meds/Results Medications: Active Medications Gen
--- NOTE | 2021-01-10 12:03 | PM.PNNEP ---
Progress Note: A&P Assessment and Plan (1) ISMAEL (acute kidney injury): Code(s): N17.9 - Acute kidney failure, unspecified Status: Acute Assessment and Plan: creatinine was normal on discharge from [facility] ~ a month ago unclear as to what precipitated ISMAEL/ARF was on diuretic therapy prior to admission concern would be pre-renal factors from poor oral intake -- however, she has evidence of volume overload on admission perhaps she is intravascularly deplete despite outward signs of volume overload -- perhaps her volume status is more of a manifestation of 3rd spacing of fluid due to decreased mobility and deconditioning from recent hospital stay(?) follow repeat labs and UOP (2) Respiratory failure with hypoxia and hypercapnia: Code(s): J96.91 - Respiratory failure, unspecified with hypoxia; J96.92 - Respiratory failure, unspecified with hypercapnia Status: Acute Assessment and Plan: as evidence by exam/labs on admission Pulmonary following continue current therapy (3) CHF (congestive heart failure): Code(s): I50.9 - Heart failure, unspecified Status: Acute Assessment and Plan: did not do well with diuretic trial on admission on IV albumin chased by IV bumex for several doses to see if we can diuresis while maintaining stable BP and preventing further decline in kidney function (finishes today) follow urine output (4) Altered mental status: Code(s): R41.82 - Altered mental status, unspecified Status: Acute Assessment and Plan: follow mentation underlying dementia(?) (5) Anemia: Code(s): D64.9 - Anemia, unspecified Status: Acute Assessment and Plan: probably due to acute issues and recent hospitalization follow H/H Will continue to follow. Subjective Date/time seen: 01/10/21 12:03 Remains intermittently confused with reasonably diuresis in the last 24 hours; not wearing BiPAP as apparently does not tolerate but respiratory status seems stable on oxygen by nasal cannula; no other acute events/issues overnight or earlier this AM. Exam Narrative: Exam Narrative: General: WD/WN female in NAD but confused Heart: normal S1 and S2; no rub Lungs: decreased breath sounds and bibasilar crackles Abdomen: soft, nontender, nondistended, positive bowel sounds Extremities: no cyanosis or clubbing; 1+ edema Skin: warm and intact Objective Data Vital Signs Vital Signs: Vital Signs Temp Pulse Resp BP Pulse Ox 06/30/21 08:00 36.7 C 80 22 H 138/92 H 99 01/10/21 07:58 80 01/10/21 04:45 36.4 C 81 20 117/60 95 01/10/21 04:11 79 20 96 01/10/21 04:00 80 01/10/21 02:00 77 01/10/21 00:00 83 01/09/21 23:16 83 96 01/09/21 22:30 80 97 01/09/21 21:05 78 97 01/09/21 20:52 80 01/09/21 20:00 36.4 C 80 20 118/57 L 96 01/09/21 16:58 36.3 C L 80 20 122/55 L 91 01/09/21 16:00 80 Intake/Output Intake/Output: Intake & Output 01/07/21 01/08/21 01/09/21 01/10/21 23:59 23:59 23:59 23:59 Intake Total 2090 890 610 100 Output Total 1050 1400 2050 750 Balance 1040 -510 -1440 -650 Meds/Results Medications: Active Medications Generic Name Dose Route Start Last Admin Trade Name Freq PRN Reason Stop Dose Admin Aspirin 81 mg 01/06/21 09:00 01/10/21 07:58 Aspirin 81 Mg Enteric Tablet PO 81 mg DAILY RAGHAV Administration Atorvastatin Calcium 20 mg 01/06/21 09:00 01/10/21 07:58 Atorvastatin 20 Mg Tablet PO 20 mg DAILY RAGHAV Administration Docusate Sodium 100 mg 01/06/21 09:00 01/10/21 07:58 Docusate Sodium 100 Mg Capsule PO 100 mg DAILY RAGHAV Administration Enoxaparin Sodium 30 mg 01/06/21 09:00 01/10/21 07:58 Enoxaparin 30 Mg/0.3 Ml Syringe SUB-Q 30 mg DAILY RAGHAV Administration Metoprolol Tartrate 25 mg 01/06/21 09:00 01/10/21 07:58 Metoprolol Tartrate 25 Mg Tablet PO 25 mg Q12
--- NOTE | 2021-01-10 15:42 | PM.IMPN ---
Progress Note: A&P Assessment and Plan (1) Acute on chronic respiratory failure with hypoxia and hypercapnia: Code(s): J96.21 - Acute and chronic respiratory failure with hypoxia; J96.22 - Acute and chronic respiratory failure with hypercapnia Status: Acute Assessment and Plan: BIPAP started. ABG with co2 retention noted BNP and elevated troponin wtih cxr with lung infiltrates. Likely secondary to fluid overload Diuresing Gillis in Daily weight Daily intake and output Cardiology consult pulmonary consulted and following as well. patient not compliantw ith her BIPAP. diuresis to continue with bumex tid along with albumin infusion. Discussed with pulmonary Chest x-ray reviewed (2) CHF (congestive heart failure): Code(s): I50.9 - Heart failure, unspecified Status: Acute Assessment and Plan: Fluid overload ongoing diureiss. anasarca noted. along with IV albumin attempted Nephrology on board for diuresis may attempt a dose of metolazone await Nephrology recommendations I and O monitored (3) Elevated troponin: Code(s): R77.8 - Other specified abnormalities of plasma proteins Status: Acute Assessment and Plan: Nonischemic myocardial injury No new EKG changes Patient with recent left and right heart catheterization back in September Continue to monitor (4) Mitral valve regurgitation: Code(s): I34.0 - Nonrheumatic mitral (valve) insufficiency Status: Acute Assessment and Plan: status post repair in the past (5) Acute renal insufficiency: Code(s): N28.9 - Disorder of kidney and ureter, unspecified Status: Acute Assessment and Plan: Patient will has been on diuretics metolazone and Lasix Patient also with recent mitral valve repair Renal ultrasound with no hydronephrosis Avoid nephrotoxin Nephrology consult (6) Status post placement of cardiac pacemaker: Code(s): Z95.0 - Presence of cardiac pacemaker Status: Acute (7) Altered mental status: Code(s): R41.82 - Altered mental status, unspecified Status: Acute Assessment and Plan: check CT head to rule out any intracranial abnormality (8) Paroxysmal atrial fibrillation: Code(s): I48.0 - Paroxysmal atrial fibrillation Status: Acute (9) Status post mitral valve replacement: Code(s): Z95.2 - Presence of prosthetic heart valve Status: Acute (10) Anemia: Code(s): D64.9 - Anemia, unspecified Status: Acute (11) CAD (coronary artery disease): Code(s): I25.10 - Atherosclerotic heart disease of [place] coronary artery without angina pectoris Status: Acute Subjective Date/time seen: 01/10/21 15:42 Interval history: patient more alert today however intermittent confusion persists. See still has diffuse swelling all over body. She is not in respiratory distress and denies overtly worse shortness of breath. She has been off of BiPAP. She has not needed any sitter yesterday or last night. Review of Systems Review of Systems: All systems reviewed & are unremarkable except as noted in HPI and below ( HPI) Exam Narrative: Exam Narrative: Patient is comfortable, confused not in acute distress HEENT: eyes are clear and none icteric LUNGS: bilateral fair air entry with rales and rhonchi ABD: obese distended, non tender Lower extremities: lower extremity edema noted all over, anasarca SKIN: nonjaundiced Neuro: confused, alert and conversant, however not oritened to time, place. oriented to person. Objective Data Vital Signs Vital Signs: Vital Signs - 24 hr 01/09/21 16:00 01/09/21 16:58 01/09/21 20:00 Temperature 97.4 F L 97.6 F Pulse Rate 80 80 80 Respiratory Rate 20 20 Blood Pressure 122/55 L 118/57 L Pulse Oximetry 91 96 01/09/21 20:52 01/09/21 21:05 01/09/21 22:30 Temperature Pulse Rate 80 78 80 Respiratory Rate Blood Pressure Pulse Oximetry 97 97 01/09/21 23
--- NOTE | 2021-01-10 16:34 | PM.PNCARD ---
Progress Note: A&P Assessment and Plan (1) Acute on chronic respiratory failure with hypoxia and hypercapnia: Code(s): J96.21 - Acute and chronic respiratory failure with hypoxia; J96.22 - Acute and chronic respiratory failure with hypercapnia Status: Acute Assessment and Plan: Complicated clinical picture. Echo reveals improvement in EF 55% (up from 35%) and durable MVR without MR. Hypoventilation but pt noncompliant with BiPAP so discontinued. Pulm following. Overall prognosis is guarded. (2) Status post mitral valve replacement: Code(s): Z95.2 - Presence of prosthetic heart valve Status: Acute Assessment and Plan: Prophylactic antibiotics prior to surgical procedures. 2D echo reveals normal functioning mitral valve with no regurgitation. EF has improved from 35-40% now 55%. (3) CHF (congestive heart failure): Code(s): I50.9 - Heart failure, unspecified Status: Acute Assessment and Plan: As above. Suspect much of her peripheral edema is secondary to third spacing and malnutrition, deconditioning. - remains difficult to diurese - Appreciate nephrology input (4) ISMAEL (acute kidney injury): Code(s): N17.9 - Acute kidney failure, unspecified Status: Acute Assessment and Plan: Nephrology consultation appreciated. Monitor function, slowly improving. Discharge creatinine on 12/06/2020 at was 1.12. (5) Elevated troponin: Code(s): R77.8 - Other specified abnormalities of plasma proteins Status: Acute Assessment and Plan: Mild elevation, flat without anginal symptoms with minimal nonobstructive CAD consistent with a type 2 infarction not acute coronary syndrome in setting decompensated heart failure, acute renal failure and underlying anemia with hypoxic respiratory failure presentation. No indication for ischemic evaluation. (6) Paroxysmal atrial fibrillation: Code(s): I48.0 - Paroxysmal atrial fibrillation Status: Acute Assessment and Plan: Postoperative atrial fibrillation, complete heart block status post [place] dual chamber pacemaker. Patient is currently ventricular paced. Not on anticoagulation due to retroperitoneal hematoma at outside hospital. (7) Altered mental status: Code(s): R41.82 - Altered mental status, unspecified Status: Acute Assessment and Plan: not responsive to voice today but responsive to stimulation. Management per primary service (8) Anemia: Code(s): D64.9 - Anemia, unspecified Status: Acute Assessment and Plan: Stable. Monitor H&H. (9) Status post placement of cardiac pacemaker: Code(s): Z95.0 - Presence of cardiac pacemaker Status: Acute Assessment and Plan: Normal functioning device, generally AV paced. Subjective Date/time seen: 01/10/21 16:34 Interval history: cardiology follow-up for heart failure Date of service 01/10/2021: Patient minimally alert today. Difficult to have a conversation with her. Her is in the room and is able to answer some Of my questions. She is off BiPAP in breathing comfortably on oxygen per nasal cannula. She has significant edema. Review of Systems Review of Systems: All systems reviewed & are unremarkable except as noted in HPI and below ROS unobtainable: Yes unobtainable due to medical condition and unobtainable due to mental status Constitutional: Constitutional: Reports as per HPI and Reports no additional constitutional complaints Eyes: Eyes: Reports as per HPI and Reports no additional eye complaints ENT: Reports system reviewed and no additional complaints, except as documented and Reports as per HPI Cardiovascular: Cardiovascular: Reports as per HPI, Reports no additional cardiovascular complaints, Reports chest pain and Reports palpitations Respiratory: Respiratory: Reports as per HPI and Reports no additional respiratory complaints Gastrointesti
[2021-01-10] MEDS: MAGNESIUM HYDROXIDE SUSP 30 ML UDC PO (17:01)
[2021-01-10] MEDS: polyethylene glycoL 3350 17 GM POWD.PACK PO (17:01)
--- NOTE | 2021-01-10 18:30 | PC.NURSE ---
This patient, Vivien Balderrama, was transferred to [[id number]] on 01/10/21 at 1830. Personal belongings sent with patient. Report given to [MERARY Banegas @ [phone] ]. Appropriate documentation sent with patient.
--- NOTE | 2021-01-10 18:39 | PC.NURSE ---
transfer received from [facility], report received from Faviola.
[2021-01-10] MEDS: QUEtiapine FUMARATE 25 MG TABLET 50 MG PO (21:18)
[2021-01-11] VITALS: BP 117/52; PULSE 80; RESP 16; TEMP 36.2; O2SAT 100
[2021-01-11 06:09] VITALS: BP 111/65; PULSE 80; RESP 18; TEMP 36.3; O2SAT 100
[2021-01-11 06:28] LABS: Basophils Percent Auto 0.1 % (0.2-1.2); Eosinophils Percent Auto 0.3 % (0-4.4); Hematocrit 28.2 % (37.0-47.0); Hemoglobin 7.7 g/dL (12.0-15.0); Immature Granulocyte Percent A 0.7 % (0-0.5); Lymphocytes Absolute Auto 1.24 K/mm3 (0.9-3.2); Lymphocytes Percent Auto 9.1 % (18.3-44.2); Mean Corpuscular HGB Conc 27.3 g/dl (32-36); Mean Corpuscular Hemoglobin 21.4 pg (26-34); Mean Corpuscular Volume 78.3 fl (80-100); Mean Platelet Volume 9.6 fl (7.4-10.4); Monocytes Percent Auto 7.6 % (2.6-8.5); Neutrophils Absolute Auto 11.2 K/mm3 (1.3-6.7); Neutrophils Percent Auto 82.2 % (45.5-73.1); Platelet Count Result 226 k/mm3 (150-375); Red Cell Distribution Width 19.8 % (11.5-14.5); White Blood Count 13.7 K/mm3 (4.5-10.0)
[2021-01-11 06:30] LABS: Blood Urea Nitrogen 57 mg/dL (7-17); Calcium 9.3 mg/dL (8.4-10.2); Carbon Dioxide > 40 mmol/L (22-30); Chloride 80 mmol/L (98-107); Estimated CRCL calculation 26 ml/min; Estimated Glomerular Filt Rate 27; Glucose 119 mg/dL (65-105); Potassium 3.3 mmol/L (3.4-5.0); Sodium 136 mmol/L (137-145)
[2021-01-11 07:00] LABS: Anisocytosis 1+ (NORMAL); Hypochromasia 1+ (NORMAL); Microcytosis 1+ (NORMAL); Ovalocytes 1+ (NORMAL); Platelet Estimate Adequate (Adequate); Poikilocytosis 2+ (NORMAL)
[2021-01-11 07:01] LABS: Stomatocytes 1+ (NORMAL)
[2021-01-11 08:00] VITALS: BP 110/58; PULSE 77; RESP 20; TEMP 36.1; O2SAT 97
[2021-01-11 09:07] LABS: Base Excess ABG 22.1 mEq/l (+/-2.0); Fractional Inspired Oxygen 28 %; HCO3 ABG 50.7 mEq/l (22.0-26.0); Oxygen Content ABG 12.5 %vol (16.0-22.0); Oxygen Saturation ABG 97.4 % (95.0-100.0); PO2 ABG 108.1 mmHg (80.0-100.0); PO2 FiO2 Ratio Arterial Blood 3.86 %; Total Hemoglobin 9.1 g/dL (12.0-18.0); pH ABG 7.371 (7.350-7.450)
[2021-01-11 09:10] LABS: PCO2 ABG 89.5 mmHg (35.0-45.0)
[2021-01-11 09:11] LABS: Device NASAL CANNULA; Modified Allen's Test Pass; Site Drawn RIGHT RADIAL
--- NOTE | 2021-01-11 09:47 | PM.PNNEP ---
Progress Note: A&P Assessment and Plan (1) ISMAEL (acute kidney injury): Code(s): N17.9 - Acute kidney failure, unspecified Status: Acute Assessment and Plan: improving creatinine was normal on discharge from [facility] ~ a month ago unclear as to what precipitated ISMAEL/ARF was on diuretic therapy prior to admission concern would be pre-renal factors from poor oral intake -- however, she has evidence of volume overload on admission perhaps she is intravascularly deplete despite outward signs of volume overload -- perhaps her volume status is more of a manifestation of 3rd spacing of fluid due to decreased mobility and deconditioning from recent hospital stay(?) follow repeat labs and UOP (2) Respiratory failure with hypoxia and hypercapnia: Code(s): J96.91 - Respiratory failure, unspecified with hypoxia; J96.92 - Respiratory failure, unspecified with hypercapnia Status: Acute Assessment and Plan: as evidence by exam/labs on admission Pulmonary following continue current therapy (3) CHF (congestive heart failure): Code(s): I50.9 - Heart failure, unspecified Status: Acute Assessment and Plan: did not do well with diuretic trial on admission s/p IV albumin chased by IV bumex for several doses to see if we can diuresis while maintaining stable BP and preventing further decline in kidney function (finished yesterday) start oral bumex today follow urine output (4) Altered mental status: Code(s): R41.82 - Altered mental status, unspecified Status: Acute Assessment and Plan: clear deterioration noted today follow mentation underlying dementia(?) (5) Anemia: Code(s): D64.9 - Anemia, unspecified Status: Acute Assessment and Plan: probably due to acute issues and recent hospitalization follow H/H Will continue to follow. Subjective Date/time seen: 01/11/21 09:47 She is not very responsive at all at the time of my visit despite multiple attempts at stimulation -- ABG results noted; family being called to discuss goals of care given patient clinical hospital course with slow and ongoing deterioration. Exam Narrative: Exam Narrative: General: WD/WN female in NAD but confused/somnolent Heart: normal S1 and S2; no rub Lungs: decreased breath sounds at bases Abdomen: soft, nontender, nondistended, positive bowel sounds Extremities: no cyanosis or clubbing; 1+ edema Skin: warm and intact Objective Data Vital Signs Vital Signs: Vital Signs Temp Pulse Resp BP Pulse Ox 01/11/21 08:00 36.1 C L 77 20 110/58 L 97 01/11/21 06:09 36.3 C L 80 18 111/65 100 01/11/21 00:00 36.2 C L 80 16 117/52 L 100 01/10/21 21:19 80 01/10/21 21:15 100 01/10/21 19:45 20 99 01/10/21 19:30 36.7 C 105 H 24 H 128/69 48 L 01/10/21 16:48 98 01/10/21 16:00 36.2 C L 80 24 H 120/53 L 100 01/10/21 12:00 36.3 C L 81 22 H 138/68 98 Intake/Output Intake/Output: Intake & Output 01/08/21 01/09/21 01/10/21 01/11/21 23:59 23:59 23:59 23:59 Intake Total 890 610 420 Output Total 1400 2050 2600 600 Balance -510 -1440 -2180 -600 Meds/Results Medications: Active Medications Generic Name Dose Route Start Last Admin Trade Name Freq PRN Reason Stop Dose Admin Aspirin 81 mg 01/06/21 09:00 01/10/21 07:58 Aspirin 81 Mg Enteric Tablet PO 81 mg DAILY RAGHAV Administration Atorvastatin Calcium 20 mg 01/06/21 09:00 01/10/21 07:58 Atorvastatin 20 Mg Tablet PO 20 mg DAILY RAGHAV Administration Docusate Sodium 100 mg 01/06/21 09:00 01/10/21 07:58 Docusate Sodium 100 Mg Capsule PO 100 mg DAILY RAGHAV Administration Enoxaparin Sodium 30 mg 01/06/21 09:00 01/10/21 07:58 Enoxaparin 30 Mg/0.3 Ml Syringe SUB-Q 30 mg DAILY RAGHAV Administration Magnesium Hydroxide 30 ml 01/10/21 16:45 01/10/21 17:01 Magnesium Hydroxide Susp 30 Ml Udc PO 30
[2021-01-11 10:00] VITALS: O2SAT 98
[2021-01-11 11:30] VITALS: PULSE 80; RESP 24; O2SAT 96
[2021-01-11] MEDS: ENOXAPARIN 30 MG/0.3 ML SYRINGE SUB-Q (12:30)
[2021-01-11] MEDS: BUMETANIDE INJ 1 MG/4 ML VIAL IV PUSH (12:31)
--- NOTE | 2021-01-11 13:58 | PCOTNOTE ---
Attempted to see patient twice this date. First attempt, unable to arouse patient. Second attempt, RN advised not to see due to decline in medical status.
[2021-01-11 15:27] VITALS: BP 108/55; PULSE 79; RESP 20; TEMP 36.1; O2SAT 97
--- NOTE | 2021-01-11 16:10 | PM.DS ---
DS: Admitting Diagnosis Admitting Diagnosis Admitting Diagnosis: shortness of breath DS: Discharge Diagnosis Discharge Diagnosis (1) Status post placement of cardiac pacemaker: Code(s): Z95.0 - Presence of cardiac pacemaker Status: Acute (2) Altered mental status: Code(s): R41.82 - Altered mental status, unspecified Status: Acute (3) Paroxysmal atrial fibrillation: Code(s): I48.0 - Paroxysmal atrial fibrillation Status: Acute (4) Status post mitral valve replacement: Code(s): Z95.2 - Presence of prosthetic heart valve Status: Acute (5) Anemia: Code(s): D64.9 - Anemia, unspecified Status: Acute (6) CAD (coronary artery disease): Code(s): I25.10 - Atherosclerotic heart disease of [place] coronary artery without angina pectoris Status: Acute (7) ISMAEL (acute kidney injury): Code(s): N17.9 - Acute kidney failure, unspecified Status: Acute (8) Respiratory failure with hypoxia and hypercapnia: Code(s): J96.91 - Respiratory failure, unspecified with hypoxia; J96.92 - Respiratory failure, unspecified with hypercapnia Status: Acute (9) CHF (congestive heart failure): Code(s): I50.9 - Heart failure, unspecified Status: Acute (10) Acute on chronic respiratory failure with hypoxia and hypercapnia: Code(s): J96.21 - Acute and chronic respiratory failure with hypoxia; J96.22 - Acute and chronic respiratory failure with hypercapnia Status: Acute (11) Acute renal insufficiency: Code(s): N28.9 - Disorder of kidney and ureter, unspecified Status: Acute (12) Elevated troponin: Code(s): R77.8 - Other specified abnormalities of plasma proteins Status: Acute (13) Mitral valve regurgitation: Code(s): I34.0 - Nonrheumatic mitral (valve) insufficiency Status: Acute DS: Summary Hospital Course Hospital Course: (1) Acute on chronic respiratory failure with hypoxia and hypercapnia: BIPAP started. ABG with co2 retention noted BNP and elevated troponin wtih cxr with lung infiltrates. Likely secondary to fluid overload Gillis placedin Daily weight Daily intake and output Cardiology consulted pulmonary consulted and following as well. patient not compliant with her BIPAP. diuresis to continue with bumex tid along with albumin infusion. chest x-ray continued to not improve. With her not tolerating BiPAP her carbon dioxide continue to rise ultimately dating to somnolence and decreased arousal. She was tried again with the BiPAP on 01/11/2021 after discussion with the family however she refused and got agitated. Further discussion was made for goals of care discussion with family and hospice care was in initiated. Patient was made DNR DNI and do was discharged to inpatient hospice care. Discussed with the at the bedside and his son over the phone (2) CHF (congestive heart failure): Code(s): I50.9 - Heart failure, unspecified Status: Acute Assessment and Plan: Fluid overload ongoing diureiss. anasarca noted. along with IV albumin attempted Nephrology on board for diuresis I and O monitored (3) Elevated troponin: Code(s): R77.8 - Other specified abnormalities of plasma proteins Status: Acute Assessment and Plan: Nonischemic myocardial injury No new EKG changes Patient with recent left and right heart catheterization back in September Continue to monitor (4) Mitral valve regurgitation: Code(s): I34.0 - Nonrheumatic mitral (valve) insufficiency Status: Acute Assessment and Plan: status post repair in the past (5) Acute renal insufficiency: Code(s): N28.9 - Disorder of kidney and ureter, unspecified Status: Acute Assessment and Plan: Patient will has been on diuretics metolazone and Lasix Patient also with recent mitral valve repair Renal ultrasound with no hydronephrosis Avoid nephrotoxin Nephr
== END 2021-01-11 16:35 | disposition hospice, inpatient (51) | DRG 280 ==
LOC: ANHED 14:55 → ANHIMU 21:30 → ANH3MED 01-11 14:13 → ANHIMU 01-12 15:37
PROVIDERS: Family Medicine; Internal Medicine; Internal Medicine Pulmonary Disease; Admitting Provider Emergency Medicine; Emergency Provider Emergency Medicine; PCP Family Medicine Adolescent Medicine; Visit Provider Internal Medicine
DX: I11.0 Hypertensive heart disease with heart failure (principal); J96.21 Acute and chronic respiratory failure with hypoxia; I21.A1 Myocardial infarction type 2; J96.22 Acute and chronic respiratory failure with hypercapnia; N17.9 Acute kidney failure, unspecified; I97.190 Other postprocedural cardiac functional disturbances following cardiac surgery; Z68.42 Body mass index [BMI] 45.0-49.9, adult; I50.33 Acute on chronic diastolic (congestive) heart failure; N28.9 Disorder of kidney and ureter, unspecified; I34.0 Nonrheumatic mitral (valve) insufficiency; I25.10 Atherosclerotic heart disease of native coronary artery without angina pectoris; D64.9 Anemia, unspecified; I48.0 Paroxysmal atrial fibrillation; E66.9 Obesity, unspecified; Z95.0 Presence of cardiac pacemaker; Z95.2 Presence of prosthetic heart valve
CPT/HCPCS: 36415; 36600; 70450; 71045; 76775; 80048; 80069; 81003; 82805; 82948; 83735; 83880; 84439; 84443; 84484; 85025; 85027; 85610; 85730; 93005; 94002; 94003; 94660; 94762; 96374; 97110; 97162; 97165; 97530; 99291; A9270; C8929; G0378; J1120; J1650; J1940; J3480; P9047; Q9957

== ENCOUNTER 2021-01-11 14:50 | HOS | payer OTHER, MEDICARE, SELFPAY ==
[2021-01-11 16:50] VITALS: BMI 45.8
[2021-01-11] MEDS: HYDROmorphone HCL INJ (*CRX) 1 MG/ML SYR IV PUSH (17:27)
[2021-01-11] MEDS: LORazepam INJ (*CRX) 2 MG/ML VIAL 1 MG IV PUSH (17:28)
[2021-01-11 17:47] VITALS: PULSE 82; RESP 20
[2021-01-11] MEDS: HYDROmorphone HCL/PF (*CRX) 50 MG in SODIUM CHLORIDE 0.9% IV 95 ML IV CONT (17:47)
[2021-01-11 20:00] VITALS: PULSE 82; RESP 20
--- NOTE | 2021-01-11 23:27 | PC.NURSE ---
notified by pct that patient may have . to room and patient found without respirations. no heart beat auscultated. time was 2305. son at bedside and condolensces offered. called and notified warehouse manager, denny banks. son called and notified the .
--- NOTE | 2021-01-12 12:39 | PM.IMHP ---
H&P: HPI History of Present Illness Date/Time: 01/12/21 12:39 Chief Complaint: dyspnea and agitation Narrative: 80 y/o f admitted to acute care with acute on chronic chf and acute resp failure with hypoxia and hypercapnea. Did not tolerated bipap. Confused. Repetetively removed it. Very sob. Was using abdominal muscles to breathe. Nonverbal. PPS 10. Dependent for all ADLs. Gillis in place. Incontinent of stool. She did not respond to attempts at diuresis, although ISMAEL was improving by lab criteria. Her spouse is her POA and he opted for comfort care only. Review of Systems Review of Systems: ROS unobtainable: Yes unobtainable due to medical condition PMFSH Past Medical History Medical History Altered mental status Anemia CAD (coronary artery disease) Mitral valve regurgitation Paroxysmal atrial fibrillation Surgical History Surgical History Status post mitral valve replacement Status post placement of cardiac pacemaker Family History Family History Father Carcinoma of colon Social History Social History Smoking status: Never smoker Alcohol intake: never Substance use: never Substance use type: does not use Gender identity (if verbalized by the patient): Female Spiritual care concerns: No Meds Home Medications and Allergies Home Medications Medication Instructions Recorded Confirmed Type No Home Medications 01/11/21 01/11/21 History Allergies Allergy/AdvReac Type Severity Reaction Status Date / Time No Known Allergies Allergy Verified 10/05/20 09:15 Vital Signs Vital Signs - 24 hr 01/11/21 17:47 01/11/21 20:00 Pulse Rate 82 82 Respiratory Rate 20 20 Exam Narrative: Exam Narrative: PATIENT PRIOR TO BEING EXAMINED BY ME. Assessment and Plan Assessment and plan (1) Palliative care by specialist: Code(s): Z51.5 - Encounter for palliative care Status: Acute Assessment and Plan: Meets inpatient hospice criteria due to uncontrolled dyspnea and agitation Hydromorphone 0.25mg/hr and 1mg q 2 hr prn Remainder of palliative regimen as ordered (2) CHF (congestive heart failure): Qualifiers: Heart failure type: systolic Heart failure chronicity: acute Qualified Code(s): I50.21 - Acute systolic (congestive) heart failure Code(s): I50.9 - Heart failure, unspecified Status: Acute (3) Respiratory failure with hypoxia and hypercapnia: Qualifiers: Chronicity: acute on chronic Qualified Code(s): J96.21 - Acute and chronic respiratory failure with hypoxia; J96.22 - Acute and chronic respiratory failure with hypercapnia Code(s): J96.91 - Respiratory failure, unspecified with hypoxia; J96.92 - Respiratory failure, unspecified with hypercapnia Status: Acute (4) CAD (coronary artery disease): Qualifiers: Coronary Disease-Associated Artery/Lesion type: circle artery [place] vs. transplanted heart: circle heart Associated angina: without angina Qualified Code(s): I25.10 - Atherosclerotic heart disease of [place] coronary artery without angina pectoris Code(s): I25.10 - Atherosclerotic heart disease of [place] coronary artery without angina pectoris Status: Acute (5) ISMAEL (acute kidney injury): Code(s): N17.9 - Acute kidney failure, unspecified Status: Acute (6) Paroxysmal atrial fibrillation: Code(s): I48.0 - Paroxysmal atrial fibrillation Status: Acute (7) Altered mental status: Qualifiers: Altered mental status type: unspecified Qualified Code(s): R41.82 - Altered mental status, unspecified Code(s): R41.82 - Altered mental status, unspecified Status: Acute (8) Mitral valve regurgitation: Qualifiers:
--- NOTE | 2021-01-12 12:58 | PM.DDS ---
Discharge Sum: Prov Provider Primary care physician: Ash Baez MD Admitting provider: Yaniv Lanza MD Discharge Sum: Diag Contributing Factors (1) CHF (congestive heart failure): (2) Respiratory failure with hypoxia and hypercapnia: (3) CAD (coronary artery disease): (4) ISMAEL (acute kidney injury): (5) Paroxysmal atrial fibrillation: (6) Altered mental status: (7) Mitral valve regurgitation: Discharge Sum: Summary Date and Time Date of admission: 01/11/21 16:36 Summary Details: Patient was admitted to inpatient hospice service due to acute on chronic CHF and respiratory failure with ISMAEL. She did not tolerate BIPAP and did not respond well to attempts at diuresis. PPS was 10. Therefore, spouse/POA opted for comfort care only. Medications were titrated to comfort and she peacefully. Additional Data Attending physician: Yaniv Lanza MD
== END 2021-01-11 23:05 | disposition expired | DRG 951 ==
PROVIDERS: Admitting Provider Internal Medicine; PCP Family Medicine Adolescent Medicine; Visit Provider Internal Medicine
DX: Z51.5 Encounter for palliative care (principal); J96.21 Acute and chronic respiratory failure with hypoxia; J96.22 Acute and chronic respiratory failure with hypercapnia; N17.9 Acute kidney failure, unspecified; I50.9 Heart failure, unspecified; I25.10 Atherosclerotic heart disease of native coronary artery without angina pectoris; I48.0 Paroxysmal atrial fibrillation; I34.0 Nonrheumatic mitral (valve) insufficiency; R41.82 Altered mental status, unspecified; D64.9 Anemia, unspecified; Z95.2 Presence of prosthetic heart valve; Z95.0 Presence of cardiac pacemaker
CPT/HCPCS: A9270; J1170; J2060